=== PATIENT | female | born 1950 | race Caucasian/White ===

== ENCOUNTER 2019-04-07 07:54 | Inpatient (IN) ==
--- NOTE | 2019-03-26 16:35 | PAT Medication Instructions ---
Medication Instructions Date of Service March 26, 2019 Home Medications dicyclomine 20 mg PO QID PRN 03/18/19 [History Confirmed 03/18/19] duloxetine [Cymbalta] 60 mg PO BID 03/18/19 [History Confirmed 03/18/19] levothyroxine [Levoxyl] 75 mcg PO QAM 03/18/19 [History Confirmed 03/18/19] lorazepam 1 mg PO TID PRN 03/18/19 [History Confirmed 03/18/19] milnacipran [Savella] 25 mg PO BID 03/18/19 [History Confirmed 03/18/19] omeprazole magnesium [Prilosec OTC] 20 mg PO BID 03/18/19 [History Confirmed 03/18/19] ondansetron HCl [Zofran] 4 mg PO Q8H PRN 03/18/19 [History Confirmed 03/18/19] quetiapine [Seroquel] 100 mg PO HS 03/18/19 [History Confirmed 03/18/19] simvastatin 40 mg PO PM 03/18/19 [History Confirmed 03/18/19] sumatriptan succinate [Imitrex] 100 mg PO DAILY PRN 03/18/19 [History Confirmed 03/18/19] tizanidine [Zanaflex] 4 mg PO Q6H PRN 03/18/19 [History Confirmed 03/18/19] valacyclovir [Valtrex] 1,000 mg PO DAILY PRN 03/18/19 [History Confirmed 03/18/19] Continue as directed valacyclovir [Valtrex] 1,000 mg PO DAILY PRN 03/18/19 [History Confirmed 03/18/19] (if needed) DO NOT take the morning of surgery dicyclomine 20 mg PO QID PRN 03/18/19 [History Confirmed 03/18/19] tizanidine [Zanaflex] 4 mg PO Q6H PRN 03/18/19 [History Confirmed 03/18/19] Take morning of surgery With a small sip of water, OTHERWISE NOTHING TO EAT OR DRINK AFTER MIDNIGHT: duloxetine [Cymbalta] 60 mg PO BID 03/18/19 [History Confirmed 03/18/19] levothyroxine [Levoxyl] 75 mcg PO QAM 03/18/19 [History Confirmed 03/18/19] lorazepam 1 mg PO TID PRN 03/18/19 [History Confirmed 03/18/19] (if needed) milnacipran [Savella] 25 mg PO BID 03/18/19 [History Confirmed 03/18/19] omeprazole magnesium [Prilosec OTC] 20 mg PO BID 03/18/19 [History Confirmed 03/18/19] ondansetron HCl [Zofran] 4 mg PO Q8H PRN 03/18/19 [History Confirmed 03/18/19] (if needed) sumatriptan succinate [Imitrex] 100 mg PO DAILY PRN 03/18/19 [History Confirmed 03/18/19] (if needed) Other Notes If you have any questions please call us at [phone] or [phone] or [phone] or [phone]
--- NOTE | 2019-03-27 10:36 | Anesthesiology Consultation ---
Date of Service March 27, 2019 Assessment & Plan (1) Encounter for pre-operative examination: Chart Review Chart Review: Pending: Refer to Additional Notes / Consult section (pending preop testing (labs, EKG, CXR)) and Patient seen in Pre Admission Testing Teaching & Discussion Pre-Anesthesia Teaching/Discussion Notes: Instructed NPO after midnight before surgery,except medications with 15 cc of water. Medication instructions provid ed according to the PAT guidelines. History Surgery Operation Date: 04/10/19 10:25 Proposed Procedures p L3-L5 Decompression Fusion, Spinal Cord Monitoring - Oj Guzmán, Height/Weight Height: 5 ft 4 in Weight: 94 kg Allergies Allergy/AdvReac Type Severity Reaction Status Date / Time Penicillins Allergy Severe hives, GI Verified 03/27/19 10:35 upset Sulfa (Sulfonamide Allergy Severe hives Verified 03/27/19 10:35 Antibiotics) latex Allergy Intermediate red and Verified 08/01/15 12:09 swelling face meloxicam AdvReac Mild diarrhea Verified 03/27/19 10:43 Medications Home Medications Medication Instructions Recorded Confirmed Last Taken dicyclomine 20 mg PO QID PRN 03/18/19 03/18/19 Unknown duloxetine [Cymbalta] 60 mg PO BID 03/18/19 03/18/19 Unknown levothyroxine [Levoxyl] 75 mcg PO QAM 03/18/19 03/18/19 Unknown lorazepam 1 mg PO TID PRN 03/18/19 03/18/19 Unknown milnacipran [Savella] 25 mg PO BID 03/18/19 03/18/19 Unknown omeprazole magnesium [Prilosec OTC] 20 mg PO BID 03/18/19 03/18/19 Unknown ondansetron HCl [Zofran] 4 mg PO Q8H PRN 03/18/19 03/18/19 Unknown quetiapine [Seroquel] 100 mg PO HS 03/18/19 03/18/19 Unknown simvastatin 40 mg PO PM 03/18/19 03/18/19 Unknown sumatriptan succinate [Imitrex] 100 mg PO DAILY PRN 03/18/19 03/18/19 Unknown tizanidine [Zanaflex] 4 mg PO Q6H PRN 03/18/19 03/18/19 Unknown valacyclovir [Valtrex] 1,000 mg PO DAILY PRN 03/18/19 03/18/19 Unknown Past Medical History Medical History Anxiety and depression Degenerated intervertebral disc Fibromyalgia GERD (gastroesophageal reflux disease) High cholesterol History of blood transfusion after childbirth Hx of herpes simplex infection Valtrex PRN Hx of migraines Hypothyroidism IBS (irritable bowel syndrome) Obesity Sciatica Exercise / Class Metabolic Activity III < 4 Walking/Shop/Light housework Past Surgical History Surgical History History of total right knee replacement Hx of cholecystectomy Hx of colonoscopy Hx of left cataract extraction Hx of right cataract extraction Hx of shoulder surgery RIGHT AND LEFT Hx of total hysterectomy Past Anesthesia History No Hx of Anesthesia Complications (except PONV) and No Family Hx of Anesthesia Complications History of PONV History of PONV and Hx of Motion Sickness Social History Smoking Status: Former smoker Smoking End Date: Quit 1993 Hx Alcohol Use: Yes alcohol intake frequency: holidays/special occasions only Hx Substance Use: No Review of Systems Patient denies chest pain, shortness of breath, cough, wheezing, palpitations. Physical Exam Vital Signs VITALS BP 127/79 P 101 TEMP 98.4 SP02 98%RA RESP 18 PHYSICAL Full neck and c-spine range of motion. Full TMJ range of motion. TMD 3 finger breaths Mallampati Score 2 Dentition: missing molars, crowns/caps on upper front Lungs: clear throughout to auscultation Cardiac: regular rate and rhythm, no murmurs noted Spine: normal Carotid arteries: negative bruit Extremities: no edema
--- NOTE | 2019-03-27 11:33 | XRay Report ---
TWO VIEW CHEST CLINICAL HISTORY: Preoperative examination. FINDINGS: PA and lateral chest radiographs are compared to study dated 03/26/2014. The cardiomediastin al silhouette is unremarkable. The lungs and pleural spaces are clear. There is no pneumothorax. The skeletal structures are osteopenic. The bony thorax appears intact. Cholecystectomy clips are seen i n the right upper quadrant. IMPRESSION: No active disease in the chest. Electronically signed by: Luis Polanco M.D. 03/27/2019 11:32 AM
[2019-03-27 13:03] LABS: Basophils # (auto) 0.05 K/uL (0-0.2); Basophils % (auto) 0.5 %; Eosinophils # (auto) 0.46 K/uL (0-0.5); Eosinophils % (auto) 4.4 %; Hematocrit (blood only) 39.1 % (37-47); Hemoglobin 12.8 g/dL (12.0-16.0); Immature Granulocytes # (auto) 0.04 K/uL (0.00-0.02); Immature Granulocytes % (auto) 0.4 %; Lymphocytes # (auto) 1.83 K/uL (1.2-3.4); Lymphocytes % (auto) 17.6 %; Mean Corpuscular Hemoglobin 28.9 pg (25-34); Mean Corpuscular Hgb Conc 32.7 g/dL (32-36); Mean Corpuscular Volume 88.3 fL (80-100); Mean Platelet Volume 9.5 fL (7.4-10.4); Monocytes # (auto) 1.07 K/uL (0.11-0.59); Monocytes % (auto) 10.3 %; Neutrophils # (auto) 6.92 K/uL (1.4-6.5); Neutrophils % (auto) 66.8 %; Platelet Count 340 K/uL (130-400); RDW Coefficient of Variation 14.4 % (11.5-14.5); RDW Standard Deviation 46.8 fL (36.4-46.3); Red Blood Count 4.43 M/uL (4.2-5.4); White Blood Count 10.37 K/uL (4.8-10.8)
[2019-03-27 13:05] LABS: Appearance Urine Cloudy (Clear); Bacteria Urine Automated Negative (Negative); Blood Urine Negative (Negative); Color Urine Dark Yellow; Epithelial Cell Urine Auto >30 /lpf (0-5); Glucose Urine UA Negative (Negative); Ketones Urine Trace (Negative); Leukocyte Esterase Urine Trace (Negative); Nitrite Urine Negative (Negative); Protein Urine Trace (Negative); RBC Urine Automated 0-4 /hpf (0-4); Specific Gravity Urine 1.032 (1.000-1.030); Urobilinogen Urine Negative (Negative)
[2019-03-27 13:16] LABS: Bilirubin Urine Negative (Negative); Ictotest Urine Negative (Negative)
[2019-03-27 13:18] LABS: Partial Thromboplastin Ratio 0.8; Partial Thromboplastin Time 22.8 Seconds (21.0-31.0); Prothrombin Time 10.2 Seconds (9.0-12.0)
[2019-03-27 13:20] LABS: BUN Creatinine Ratio 17.9 (10-20); Calcium 9.5 mg/dl (8.5-10.1); Creatinine Clr Calc Pharmacy 53.7 ml/min; Est GFR (African American) 59.3; Est GFR (Non-African American) 51.2; Potassium 4.3 mmol/L (3.5-5.1)
[2019-03-27 13:25] LABS: Cast Urine Automated 0 /lpf (0-5)
[2019-03-27 13:26] LABS: Calcium Oxalate Crystals Urine Present (None Prsent)
[~2019-04-07 07:54] MED LIST: ACETAMINOPHEN 500 MG TAB PO SCH; CLINDAMYCIN 600 MG/54 ML BAG IV SCH; CeleBREX 200 MG CAP PO SCH; GABAPENTIN 300 MG CAP PO SCH; HYDROmorphone INJ 2 MG/ML SYR/VIAL ONE; LR 15ML/HR IV SCH; MIDAZOLAM HCL 1 MG/ML 2ML VIAL ONE; fentaNYL citrate 100 MCG/2 ML VIAL ONE
[2019-04-07] MEDS ORDERED: NEOSTIGMINE METHYLSULFATE 5 MG/5 ML SYR ONE (08:40)
[2019-04-07] MEDS ORDERED: DEXAMETHASONE SOD INJ 4 MG/ML VIAL ONE (08:40)
[2019-04-07] MEDS ORDERED: LIDOCAINE HCL 2% 2 ML VIAL/AMP(20MG/ML) INFIL ONE (08:40)
[2019-04-07] MEDS ORDERED: ONDANSETRON INJ 2 MG/ML 2 ML VIAL ONE (08:40)
[2019-04-07] MEDS ORDERED: ROCURONIUM BROMIDE 10 MG/ML 5 ML VIAL ONE (08:40)
[2019-04-07] MEDS ORDERED: GLYCOPYRROLATE 0.2 MG/ML VIAL ONE (08:40)
[2019-04-07] MEDS ORDERED: PROPOFOL IV EMULSION 10 MG/ML 20 ML VIAL IV ONE (08:40)
[2019-04-07] MEDS ORDERED: HYDROmorphone INJ 2 MG/ML SYR/VIAL ONE (09:26)
--- NOTE | 2019-04-07 10:01 | History & Physical Bridge Note ---
Date of Service April 07, 2019 History & Physical Bridge Note I have examined the patient, reviewed the History & Physical and in the interval since the performance of the History & Physical I have noted the following changes of clinical significance: no changes noted
--- NOTE | 2019-04-07 10:02 | History & Physical Report ---
Date of Service April 07, 2019 Assessment & Plan (1) Neurogenic claudication due to lumbar spinal stenosis: Decompression fusion L3-L5 Present on Admission?: Yes History of Present Illness Chief Complaint: Back and bilateral leg pain Primary Care Provider: Brooklyn Carlson DO This is a 68-year-old female who presents with chronic persistent back and leg symptoms. After failing extensive course of nonoperative care she is here for surgical intervention. Allergies Allergy/AdvReac Type Severity Reaction Status Date / Time Penicillins Allergy Severe hives, GI Verified 04/07/19 08:28 upset Sulfa (Sulfonamide Allergy Severe hives Verified 04/07/19 08:28 Antibiotics) latex Allergy Intermediate red and Verified 04/07/19 08:28 swelling face meloxicam AdvReac Mild diarrhea Verified 04/07/19 08:28 Home Medications Home Medications Medication Instructions Recorded Confirmed Type dicyclomine 20 mg PO QID PRN 03/18/19 04/07/19 History duloxetine [Cymbalta] 60 mg PO BID 03/18/19 04/07/19 History levothyroxine [Levoxyl] 75 mcg PO QAM 03/18/19 04/07/19 History lorazepam 1 mg PO TID PRN 03/18/19 04/07/19 History milnacipran [Savella] 25 mg PO BID 03/18/19 04/07/19 History omeprazole magnesium [Prilosec OTC] 20 mg PO BID 03/18/19 04/07/19 History ondansetron HCl [Zofran] 4 mg PO Q8H PRN 03/18/19 04/07/19 History quetiapine [Seroquel] 100 mg PO HS 03/18/19 04/07/19 History simvastatin 40 mg PO PM 03/18/19 04/07/19 History sumatriptan succinate [Imitrex] 100 mg PO DAILY PRN 03/18/19 04/07/19 History tizanidine [Zanaflex] 4 mg PO Q6H PRN 03/18/19 04/07/19 History valacyclovir [Valtrex] 1,000 mg PO DAILY PRN 03/18/19 04/07/19 History citalopram [Celexa] 20 mg PO BID 04/07/19 04/07/19 History Past Med/Surg History Social History Preferred Language: [place] Communication Ability: Effective Beliefs That Will Affect Care: None Current Living Situation: Spouse Feels Safe at Home: Yes Safety Concerns: Feels Safe At This Time Smoking Status: Former smoker Smoking End Date: Quit 1993 ; Second Hand Exposure: No ; Hx Alcohol Use: Yes Hx Substance Use: No Physical Exam Physical Exam: Patient is alert and oriented neurologically intact. Results & Data Vital Signs (Past 12 Hours) Vital Signs Temp Pulse Resp BP Pulse Ox 04/07/19 08:36 36.8 C 94 H 18 129/80 95
[2019-04-07] MEDS ORDERED: BACITRACIN INJ 50,000 UNIT VIAL ONE (10:17)
[2019-04-07] MEDS ORDERED: BUPIVACAINE 0.5 % 5 MG/1 ML MPF 30ML VIAL ONE (10:18)
[2019-04-07] MEDS ORDERED: EPINEPHrine INJ 1 MG/ML AMP ONE (10:18)
[2019-04-07] MEDS ORDERED: fentaNYL citrate 100 MCG/2 ML VIAL ONE ×3 (10:45→12:48)
[2019-04-07] MEDS ORDERED: PROMETHAZINE HCL 12.5 MG in SODIUM CHLORIDE 0.9% 50 ML IV PRN ×2 (11:02→14:54)
[2019-04-07] MEDS ORDERED: ONDANSETRON INJ 2 MG/ML 2 ML VIAL IV PRN (11:02)
[2019-04-07] MEDS ORDERED: LABETALOL HCL IV 5 MG/ML 20ML IV PRN (11:02)
[2019-04-07] MEDS ORDERED: ATROPINE SULFATE 0.1 MG/ML 10ML SYR IV PRN (11:02)
[2019-04-07] MEDS ORDERED: FLUMAZENIL 0.1 MG/1 ML 10 ML VIAL IV PRN (11:02)
[2019-04-07] MEDS ORDERED: NALOXONE HCL 0.4 MG/1 ML VIAL/CARP IV PRN ×2 (11:02→14:54)
[2019-04-07] MEDS ORDERED: ePHEDrine sulfate 50 MG/ML AMP IV PRN (11:02)
[2019-04-07] MEDS ORDERED: FLOSEAL HEMOSTATIC MATRIX 10ML TOP ONE (12:41)
[2019-04-07] MEDS ORDERED: PHENYLEPHRINE 100MCG/ML 5ML SYR ONE (12:52)
[2019-04-07] MEDS ORDERED: KETOROLAC 30 MG/ML VIAL ONE (12:52)
[2019-04-07] MEDS ORDERED: PHENYLEPHRINE HCL 10 MG/ML VIAL ONE (12:52)
--- NOTE | 2019-04-07 12:55 | Operative Report ---
Post Operative Report Pre & Post Diagnosis Operation Date: 04/07/19 09:35 Pre-Op Diagnosis: Lumbar Spinal Stenosis with Neurogenic Claudication Post-Op Diagnosis: Lumbar Spinal Stenosis with Neurogenic Claudication I identified the patient and participated in the time-out.: Yes Procedure Operation Date: 04/07/19 09:35 Actual Procedures #1 lumbar decompression with bilateral medial facetectomies foraminotomies L2-3 L3-4 L4-5. #2 posterior spinal fusion L3-4 L4-5 per #3 placement posterior instrumentation L3-4 L4-5 per #4 interbody fusion L3-4 L4-5 per #5 placed a peek cage 8 x 22 mm at L3-4 and 9 x 22 mm at L4-5. #6 placement of locally harvested morselized autograft in the posterior lateral gutters. #7 placement infuse collagen sponge combined with master graft in the posterior lateral gutters and ostial amp in the interbody spaces. Surgeon Oj Guzmán, DO Envelope Sealer Gill Diaz Estimated Blood Loss 250 Findings See Below The patient is 5 foot 4 inches tall weighing over 94 kg with a BMI in excess of 35. The patient's body habitus did require deeper retractors and longus instruments in order to perform her procedure. This did add significant technical difficulty at at least 25% increase in operative time. Specimens None Indications This is a 68-year-old female presents with above-mentioned diagnosis after failing extensive course of nonoperative care like to undergo the above- mentioned procedure. Description of Procedure Patient was met with identified and informed consent obtained. Patient was then taken to the operative suite underwent intubation placed in the prone position on the Darvin table on top of the Juan frame. All bony prominences well- padded eyes inspected to ensure no external pressure placed upon the peer at this point the lumbar spine was prepped and draped in normal sterile fashion. Sharp dissection with the assistance of Bovie cautery was performed down to and exposing the lamina and transverse processes of L3-L4-L5 bilaterally. From a caudal to cephalad fashion complete laminectomy of L4 L3 and partial laminectomy of L2 was performed including bilateral medial facetectomies and foraminotomies addressing lateral recess and foraminal stenosis. Pedicle fusion and placed in L3-L4-L5 bilaterally with assistance of fluoroscopy and the probably size tran placed. By way of a transforaminal approach on the right complete discectomy of L4-5 was performed in plate graded to subcortical being bone and a 9 x 22 mm peek cage filled with osteo-amp was tapped in position. Then proceeded to L3-[address] of a transforaminal approach on the right complete discectomy was performed endplates curetted to subcortical mean bone and a 8 x 22 mm peek cage filled with ostium bone graft tapped in position. The rods were then locked in final position bilaterally. The transverse processes of L3-L4-L5 bur to subcortical being bone. Infuse collagen sponge master graft and local autograft was placed in the posterior lateral gutters. 15 round KANU drain inserted. The incision was then closed with 1 Vicryl in the fascia 2-0 Vicryl subtenons in 4 Monocryl for final skin closure. Steri-Strip sterile dressings placed. Patient will continue to PACU stable disc. Please note Gill Diaz present at the entire procedure involved the patient positioning complex portions of the surgery and final skin closure. Lastly spinal cord monitoring was utilized that the procedure and no changes noted. I attest to the content of the Intraoperative Record and any orders documented therein. Any exceptions are noted below.
[2019-04-07] MEDS: HYDROmorphone INJ 1 MG/ML SYRINGE IV PRN ×8 (13:19→13:53)
[2019-04-07] MEDS ORDERED: ESMOLOL HCL INJ 10 MG/ML 10ML VIAL IV ONE (13:21)
--- NOTE | 2019-04-07 13:36 | Fluoroscopy Report ---
FL lumbar spine 2-3V HISTORY: 68 years-old Female L3-L5 DECOMPRESSION AND FUSION chronic low back pain COMPARISON: Lumbar spine CT 08/01/2015 TECHNIQUE: 2 spot fluoroscopic images of the lumbar spine were obtained utilizing 24.2 seconds fluoro scopy time FINDINGS: Laminectomy with posterior interbody tran and screw fusion and discectomy noted at what appears to be the L3-L5 levels. Alignment appears satisfactory without acute fracture. The hardware appears intact. Multilevel spondylitic spurring with intervertebral disc space narrowing redemonstrated. IMPRESSION: Fluoroscopic assistance as above. Please see operative report for further details. The above report was generated using voice recognition software. It may contain grammatical, syntax o r spelling errors. Electronically signed by: Juarez Meza M.D. 04/07/2019 1:34 PM
--- NOTE | 2019-04-07 14:28 | Anesthesiology Progress Note ---
Date of Service April 07, 2019 Anesthesia Post Procedure Vital Signs Vital Signs: Temp Pulse Pulse Pulse Resp BP BP 04/07/19 14:26 102 H 14 04/07/19 14:25 106 H 14 100/50 L 04/07/19 14:21 107 H 14 04/07/19 14:20 104 H 14 131/67 04/07/19 14:16 108 H 12 04/07/19 14:15 114 H 17 99/63 L 04/07/19 14:11 110 H 15 04/07/19 14:10 110 H 21 125/59 L 04/07/19 14:06 107 H 14 04/07/19 14:05 112 H 17 112/63 04/07/19 14:01 116 H 22 102/49 L 04/07/19 14:00 111 H 19 04/07/19 13:56 107 H 14 04/07/19 13:55 111 H 18 153/86 H 04/07/19 13:51 108 H 17 04/07/19 13:50 108 H 22 150/74 H 04/07/19 13:46 103 H 14 04/07/19 13:45 105 H 14 139/68 04/07/19 13:40 101 H 13 146/62 H 04/07/19 13:36 102 H 17 04/07/19 13:35 105 H 17 146/74 H 04/07/19 13:31 105 H 21 04/07/19 13:30 105 H 16 125/60 04/07/19 13:26 103 H 18 04/07/19 13:25 102 H 25 H 122/73 04/07/19 13:21 98 H 18 04/07/19 13:20 97 H 19 114/74 04/07/19 13:16 95 H 24 04/07/19 13:15 92 H 21 136/68 04/07/19 13:14 36.6 C 91 H 87 16 122/76 122/76 04/07/19 08:36 36.8 C 94 H 18 129/80 Pulse Ox 04/07/19 14:26 95 04/07/19 14:25 96 04/07/19 14:21 96 04/07/19 14:20 95 04/07/19 14:16 90 04/07/19 14:15 90 04/07/19 14:11 94 04/07/19 14:10 93 04/07/19 14:06 93 04/07/19 14:05 92 04/07/19 14:01 94 04/07/19 14:00 94 04/07/19 13:56 96 04/07/19 13:55 91 04/07/19 13:51 96 04/07/19 13:50 96 04/07/19 13:46 98 04/07/19 13:45 98 04/07/19 13:40 98 04/07/19 13:36 97 04/07/19 13:35 98 04/07/19 13:31 97 04/07/19 13:30 97 04/07/19 13:26 98 04/07/19 13:25 99 04/07/19 13:21 100 04/07/19 13:20 98 04/07/19 13:16 99 04/07/19 13:15 99 04/07/19 13:14 98 04/07/19 08:36 95 Pain Intensity Lower Back: Pain Intensity: 8 Transfer of Care Handoff Completed per policy Notes Mental Status: alert / awake / arousable Patient Amnestic to Procedure: Yes Nausea / Vomiting: adequately controlled Pain: adequately controlled Airway Patency, RR, SpO2: stable & adequate BP & HR: stable & adequate Hydration State: stable & adequate Anesthetic Complications: no major complications apparent
[2019-04-07] MEDS ORDERED: METOCLOPRAMIDE HCL INJ 5 MG/ML 2 ML VIAL IV PRN (14:54)
[2019-04-07] MEDS ORDERED: HYDROmorphone INJ 1 MG/ML SYRINGE IV PRN (14:54)
[2019-04-07] MEDS ORDERED: ALUMINUM/MAGNESIUM SUSP 30 ML UDC PO PRN (14:54)
[2019-04-07] MEDS ORDERED: ACETAMINOPHEN 1,000 MG/100 ML VIAL IV PRN (14:54)
[2019-04-07] MEDS ORDERED: DO NOT ADMINISTER FLU VACCINE PRN (14:54)
[2019-04-07] MEDS ORDERED: MAGNESIUM HYDROXIDE SUSP 30 ML UDC PO PRN (14:54)
[2019-04-07] MEDS ORDERED: SOD PHOSPHATE/SOD BIPHOSPHATE ENEMA 132 ML BTL PR PRN (14:54)
[2019-04-07] MEDS ORDERED: DICYCLOMINE HCL 20 MG TAB PO PRN (14:54)
[2019-04-07] MEDS ORDERED: ONDANSETRON 4 MG OD TAB PO PRN (14:54)
[2019-04-07] MEDS ORDERED: HYDROmorphone INJ 0.5 MG/0.5 ML SYR IV PRN (14:54)
[2019-04-07] MEDS ORDERED: ONDANSETRON 4 MG TAB PO PRN (14:54)
[2019-04-07] MEDS ORDERED: DO NOT ADMINISTER PNEUMOCOCCAL VACCINE PRN (14:54)
[2019-04-07] MEDS ORDERED: ATIVAN 1MG HOMEPACK PO PRN (14:54)
[2019-04-07] MEDS ORDERED: BISACODYL 10 MG SUPP PR PRN (14:54)
[2019-04-07] MEDS ORDERED: FAMOTIDINE 20 MG TAB PO PRN (14:54)
[2019-04-07] MEDS ORDERED: ACETAMINOPHEN 500 MG TAB PO PRN (14:54)
[2019-04-07] MEDS ORDERED: LORazepam 0.5 MG/1 ML VIAL IV PRN (14:54)
[2019-04-07] MEDS: LORazepam 0.5 MG TAB PO PRN (15:51)
[2019-04-07] MEDS: SODIUM CHLORIDE 0.9% 1000ML 1,000 ML IV SCH ×2 (15:51→23:27)
--- NOTE | 2019-04-07 16:32 | Hospitalist Consultation ---
Date of Consultation April 07, 2019 Assessment & Plan (1) Neurogenic claudication due to lumbar spinal stenosis: - POD#0 L3-L5 decompression fusion by Dr. Guzmán - activity and wound care orders as per ortho - pain control with bowel regimen - PT/OT - monitor H/H for acute blood loss anemia and transfuse blood products PRN - EBL 250 cc (2) Tachycardia: -Mild HR 90s-low 100s, heart rhythm auscultates to regular on exam -Likely secondary to postop pain -will check H&H to evaluate for anemia -Continue IVF (3) Hypothyroidism: -Continue with thyroxine (4) Fibromyalgia: (5) Anxiety and depression: -Continue home medications (6) GERD (gastroesophageal reflux disease): -Continue PPI (7) DVT prophylaxis: -Teds/SCDs as per spine orthopedics Thank you for this consultation. We will follow the patient with you during their hospital stay. You can reach a [facility] via pager @ [phone]. Supervising Physician Co-Signing Physician Notes Attending addendum The patient was seen and examined in medical floor Status post lumbar decompression and fusion. POD #0 Complains some back pain without any other symptoms Denies any chest pain, palpitation, shortness of breath, no abdominal pain, nausea and/or vomiting, no numbness or tingling in the extremities On examination Lying in bed comfortably Hemodynamically stable with borderline tachycardia Chest-clear to auscultate bilaterally Heart-S1-S2, regular Abdomen-benign Extremities-negative for any edema Her preop labs and imaging studies reviewed We will monitor her CBC and kidney function while in the hospital Agree with assessment and plan as outlined above by Rere Bronson History of Present Illness Reason for Consultation: Postop medical management Requesting Physician: Dr. Guzmán Attending Physician: Dr. Bronson History of Present Illness 68-year-old female who is status post L3-L5 decompression fusion today by Dr. Guzmán. Postoperatively, the patient is doing well. She reports she is having lumbar back pain however reports this was present prior to surgery. She denies any numbness or tingling to lower extremities. Has chronic numbness and t ingling to the upper extremities which is unchanged from baseline. She denies chest pain shortness of breath. No lightheadedness or dizziness. Denies abdominal pain or nausea. Smith catheter is in place draining clear yellow urine. Allergies Allergy/AdvReac Type Severity Reaction Status Date / Time Penicillins Allergy Severe hives, GI Verified 04/07/19 08:28 upset Sulfa (Sulfonamide Allergy Severe hives Verified 04/07/19 08:28 Antibiotics) latex Allergy Intermediate red and Verified 04/07/19 08:28 swelling face meloxicam AdvReac Mild diarrhea Verified 04/07/19 08:28 Home Medications Home Medications Medication Instructions Recorded Confirmed Type duloxetine [Cymbalta] 60 mg PO BID 03/18/19 04/07/19 History levothyroxine [Levoxyl] 75 mcg PO QAM 03/18/19 04/07/19 History lorazepam 1 mg PO TID PRN 03/18/19 04/07/19 History milnacipran [Savella] 25 mg PO BID 03/18/19 04/07/19 History omeprazole magnesium [Prilosec OTC] 20 mg PO BID 03/18/19 04/07/19 History ondansetron HCl [Zofran] 4 mg PO Q8H PRN 03/18/19 04/07/19 History quetiapine [Seroquel] 100 mg PO HS 03/18/19 04/07/19 History simvastatin 40 mg PO PM 03/18/19 04/07/19 History sumatriptan succinate [Imitrex] 100 mg PO DAILY PRN 03/18/19 04/07/19 History tizanidine [Zanaflex] 4 mg PO Q6H PRN 03/18/19 04/07/19 History valacyclovir [Valtrex] 1,000 mg PO DAILY PRN 03/18/19 04/07/19 History celecoxib 100 mg PO BID 04/07/19 04/07/19 History Patient History Medical History Anxiety and depression Degenerated intervertebral disc Fibromyalgia GERD (gastroesophageal reflux disease) High cholesterol History of blood transfusion 1969's after childbirth Hx of herpes simplex infection Valtrex PRN Hx of migraines Hypothyroidism IBS (irritable bowel syndrome) Obesity Sciatica Surgical History History of total right knee replacement Hx of cholecystectomy Hx of colonoscopy Hx of left cataract extraction Hx of right cataract extraction Hx of shoulder surgery RIGHT AND LEFT Hx of total hysterectomy Family History Father Colorectal cancer Abdominal aortic aneurysm Diabetes Social History Preferred Language: Divehi Communication Ability: Effective Beliefs That Will Affect Care: None Current Living Situation: Spouse Feels Safe at Home: Yes Safety Concerns: Feels Safe At This Time Smoking Status: Former smoker Smoking End Date: Quit 1993 ; Second Hand Exposure: No ; Hx Alcohol Use: Yes Hx Substance Use: No Review of Systems Review of Systems: ROS per HPI, all other systems reviewed and negative Physical Exam Constitutional: WD/WN, vitals as above Eyes: PERRL, conjunctivae normal, anicteric sclerae ENMT: external ear and nose normal, oropharynx normal Respiratory: normal respiratory effort, lungs clear to auscultation Cardiovascular: Rate/Rhythm: regular rate and regular rhythm Vessels: normal peripheral pulses Extremities: + edema (Trace edema BLE) Gastrointestinal (Abdomen): normal bowel sounds, soft, nontender, no hepatosplenomegaly Musculoskeletal: no cyanosis or clubbing, extremities motor strength 5/5 S/P back surgery, drain in place draining bloody drainage, pedal pushes and pulls strong bilaterally Skin: no rashes, warm and dry Neurologic: PERRL, EOMI, accommodation nl, no face palsy, no dysarthria Psychiatric: A+Ox3, euthymic affect Results & Data Vital Signs (Past 12 Hours) Vital Signs Temp Pulse Pulse Pulse Pulse Resp BP 04/07/19 15:23 91 H 17 04/07/19 14:40 36.6 C 111 H 16 04/07/19 14:26 102 H 14 04/07/19 14:25 106 H 14 100/50 L 04/07/19 14:21 107 H 14 04/07/19 14:20 36.4 C L 104 H 14 131/67 04/07/19 14:16 108 H 12 04/07/19 14:15 114 H 17 99/63 L 04/07/19 14:11 110 H 15 04/07/19 14:10 110 H 21 125/59 L 04/07/19 14:06 107 H 14 04/07/19 14:05 112 H 17 112/63 04/07/19 14:01 116 H 22 102/49 L 04/07/19 14:00 111 H 19 04/07/19 13:56 107 H 14 04/07/19 13:55 111 H 18 153/86 H 04/07/19 13:51 108 H 17 04/07/19 13:50 108 H 22 150/74 H 04/07/19 13:46 103 H 14 04/07/19 13:45 105 H 14 139/68 04/07/19 13:40 101 H 13 146/62 H 04/07/19 13:36 102 H 17 04/07/19 13:35 105 H 17 146/74 H 04/07/19 13:31 105 H 21 04/07/19 13:30 105 H 16 125/60 04/07/19 13:26 103 H 18 04/07/19 13:25 102 H 25 H 122/73 04/07/19 13:21 98 H 18 04/07/19 13:20 97 H 19 114/74 04/07/19 13:16 95 H 24 04/07/19 13:15 92 H 21 136/68 04/07/19 13:14 36.6 C 91 H 87 16 122/76 04/07/19 08:36 36.8 C 94 H 18 BP Pulse Ox 04/07/19 15:23 107/69 95 04/07/19 14:40 123/68 95 04/07/19 14:26 95 04/07/19 14:25 96 04/07/19 14:21 96 04/07/19 14:20 94 04/07/19 14:16 90 04/07/19 14:15 90 04/07/19 14:11 94 04/07/19 14:10 93 04/07/19 14:06 93 04/07/19 14:05 92 04/07/19 14:01 94 04/07/19 14:00 94 04/07/19 13:56 96 04/07/19 13:55 91 04/07/19 13:51 96 04/07/19 13:50 96 04/07/19 13:46 98 04/07/19 13:45 98 04/07/19 13:40 98 04/07/19 13:36 97 04/07/19 13:35 98 04/07/19 13:31 97 04/07/19 13:30 97 04/07/19 13:26 98 04/07/19 13:25 99 04/07/19 13:21 100 04/07/19 13:20 98 04/07/19 13:16 99 04/07/19 13:15 99 04/07/19 13:14 122/76 98 04/07/19 08:36 129/80 95
[2019-04-07 16:35] LABS: Hematocrit (blood only) 33.2 % (37-47); Hemoglobin 10.7 g/dL (12.0-16.0)
[2019-04-07] MEDS: CLINDAMYCIN 600 MG in DEXTROSE 5% 50 ML IV SCH (17:20)
[2019-04-07] MEDS: OXYCODONE HCL IR 5 MG TAB (IMMEDIATE RELEASE) PO PRN (18:10)
[2019-04-07] MEDS: DULOXETINE HCL 60 MG CAP PO SCH (20:07)
[2019-04-07] MEDS: QUETIAPINE FUMARATE 100 MG TABLET PO SCH (20:08)
[2019-04-07] MEDS: SIMVASTATIN 40 MG TAB PO SCH (20:08)
[2019-04-07] MEDS: PANTOprazole 40 MG TAB PO SCH (20:08)
[2019-04-07] MEDS: DOCUSATE SODIUM/SENNA 50/8.6MG TAB PO SCH (20:08)
[2019-04-07] MEDS ORDERED: CITALOPRAM 20 MG TAB PO SCH (21:00)
[2019-04-08] MEDS: LORazepam 0.5 MG TAB PO PRN ×2 (00:37→20:05)
[2019-04-08] MEDS: OXYCODONE HCL IR 5 MG TAB (IMMEDIATE RELEASE) PO PRN ×3 (00:40→20:05)
[2019-04-08] MEDS: CLINDAMYCIN 600 MG in DEXTROSE 5% 50 ML IV SCH (00:41)
[2019-04-08] MEDS: POLYETHYLENE (MIRALAX) 17 GM PACK PO SCH ×4 (04:56→23:25)
[2019-04-08] MEDS: LEVOTHYROXINE SODIUM 75 MCG TABLET PO SCH (04:57)
[2019-04-08] MEDS: ONDANSETRON INJ 2 MG/ML 2 ML VIAL IV PRN ×2 (05:05→16:55)
[2019-04-08 05:42] LABS: Hematocrit (blood only) 30.5 % (37-47); Hemoglobin 9.8 g/dL (12.0-16.0); Immature Granulocytes # (auto) 0.11 K/uL (0.00-0.02); Immature Granulocytes % (auto) 0.6 %; Lymphocytes # (auto) 1.18 K/uL (1.2-3.4); Lymphocytes % (auto) 6.8 %; Mean Corpuscular Hemoglobin 28.2 pg (25-34); Mean Corpuscular Hgb Conc 32.1 g/dL (32-36); Mean Corpuscular Volume 87.6 fL (80-100); Mean Platelet Volume 9.3 fL (7.4-10.4); Monocytes # (auto) 1.21 K/uL (0.11-0.59); Monocytes % (auto) 6.9 %; Neutrophils # (auto) 14.98 K/uL (1.4-6.5); Neutrophils % (auto) 85.7 %; Platelet Count 252 K/uL (130-400); RDW Coefficient of Variation 14.6 % (11.5-14.5); RDW Standard Deviation 46.8 fL (36.4-46.3); Red Blood Count 3.48 M/uL (4.2-5.4); White Blood Count 17.48 K/uL (4.8-10.8)
[2019-04-08 06:14] LABS: BUN Creatinine Ratio 17.6 (10-20); Calcium 8.5 mg/dl (8.5-10.1); Creatinine Clr Calc Pharmacy 57.4 ml/min; Est GFR (African American) 64.2; Est GFR (Non-African American) 55.4; Potassium 4.6 mmol/L (3.5-5.1)
[2019-04-08] MEDS: PANTOprazole 40 MG TAB PO SCH ×2 (07:47→20:06)
[2019-04-08] MEDS: DULOXETINE HCL 60 MG CAP PO SCH ×2 (07:48→20:06)
[2019-04-08] MEDS: TRAMADOL HCL 50 MG TABLET PO PRN ×2 (07:57→23:30)
--- NOTE | 2019-04-08 09:11 | Hospitalist Progress Note ---
Date of Service April 08, 2019 Assessment & Plan (1) Neurogenic claudication due to lumbar spinal stenosis: Post op day# 1 S/P L3-L5 decompression & fusion by Dr Guzmán EBL #250ml Total #220ml Drain output -pain management per ortho -wound management per ortho -PT/OT as appropriate -DVT prophylaxis per ortho -incentive spirometry -Hgb: 9.8 from 12.8 pre-op. Pt has received ~4700ml total IV products. Monitor H&H. (2) Tachycardia: Post op HR 90s-low 100s This morning HR 94 Pt with some post-op pain Received IVF -Monitor HR (3) Leukocytosis: WBC: 17, from 12.8 pre-op Denies cough, SOB, CP. Lungs clear to auscultation. No urinary symptoms. Afebrile May be secondary to perioperative steroids, post-operative state -Monitor CBC and monitor for signs of infection and may need to consider further workup (4) Hypothyroidism: -Continue with thyroxine (5) Fibromyalgia: (6) Anxiety and depression: -Continue home medications (7) GERD (gastroesophageal reflux disease): -Continue PPI (8) DVT prophylaxis: -Teds/SCDs as per spine orthopedics Pt was seen and care coordinated with Dr Garcia. See addendum Supervising Physician Co-Signing Physician Notes Attending addendum: Patient seen and examined by me, care coordinated with JERO Jimenez. Agree with her note above. Pt is a 68 y/o F who is s/p L3-L5 decompression fusion POD#1, by Dr. Guzmán. Postoperatively, the patient is doing well. She reports having some lumbar back pain however reports this was present prior to surgery. She denies chest pain, shortness of breath, palpitations, abdominal pain, nausea, vomiting, lightheadedness or dizziness. She says that her "fibromyalgia is flaring up". Smith catheter is in place draining clear yellow urine. On examination, patient is lying in bed in no acute distress, comfortable. Hemodynamically stable with borderline tachycardia. Chest-clear to auscultation bilaterally, no wheezes or rhonchi. Heart sounds regular, no murmurs noted. Abdomen is soft, nontender, nondistended, positive bowel sounds. Extremities-negative for any edema. Labs reviewed, significant for leukocytosis, with white blood cell count of 17.5, likely secondary to corticosteroid use and postop phase. Anemia with hemoglobin 9.8, down from 10.7 yesterday and 12.8 prior to that, this is likely dilutional and acute blood loss, expected secondary to surgery. Patient is hemodynamically stable. We will continue to monitor. Thank you for this consultation, please contact us with any questions or concerns. Diya Garcia MD Subjective Pt seen and examined. Sitting up in bed. Reports had some nausea this morning. Reports some low back pain this morning. Tolerated toast for breakfast. No vomiting. Reports passing flatus. Urinating without difficulty. Denies fever/chills, diaphoresis, GOMES, dizziness, syncope, vision changes, neck pain, CP, SOB, orthopnea, palpitations, cough, sore throat, choking, abdominal pain, paresthesias, extremity edema, rashes, urinary symptoms. Review of Systems Review of Systems: All systems reviewed & are unremarkable except as noted in HPI & below Physical Exam Physical Exam: General: no acute distress, obese Head: normocephalic, atraumatic Eyes: conjunctiva non-injected, anicteric ENT: normal inspection external ears, nose, mucous membranes moist Neck: supple, trachea midline Lungs: clear, no respiratory distress, no wheezing/rhonchi/rales CV: RRR, rate: 92, no murmur, no pretibial edema Abd: normal BS, soft, non-tender Back: surgical dressing in place, drain in place with serosanguineous drainage Ext: no cyanosis, no calf tenderness; pedal pushes and pulls intact bilaterally, distal pulses intact, sensation to light touch intact Neuro: A&O x 3, no focal deficits noted, normal affect Skin: warm, dry Results & Data Vital Signs (Past 12 Hours) Vital Signs Temp Pulse Pulse Resp BP Pulse Ox 04/08/19 08:15 91 04/08/19 08:00 36.8 C 94 H 21 113/71 95 04/08/19 04:58 96 04/08/19 04:57 88 L 04/08/19 03:45 37.0 C 104 H 16 98/63 L 91 04/07/19 23:10 37.1 C 101 H 18 104/62 93 Laboratory Results Short CBC 03/27/19 04/07/19 04/08/19 Range/Units 11:00 16:14 04:46 WBC 17.48 H (4.8-10.8) K/uL Hgb 10.7 L 9.8 L (12.0-16.0) g/dL Hct 33.2 L 30.5 L (37-47) % Plt Count 252 (130-400) K/uL Creatinine 1.10 (0.6-1.2) mg/dl 04/08/19 Range/Units 04:46 WBC (4.8-10.8) K/uL Hgb (12.0-16.0) g/dL Hct (37-47) % Plt Count (130-400) K/uL Creatinine 1.03 (0.6-1.2) mg/dl BMP 04/08/19 04:46 Sodium 140 Potassium 4.6 Chloride 107 Carbon Dioxide 27 BUN 18 Creatinine 1.03 Glucose 133 H Calcium 8.5
--- NOTE | 2019-04-08 09:16 | Orthopedic Progress Note ---
Date of Service April 08, 2019 Assessment & Plan (1) Neurogenic claudication due to lumbar spinal stenosis: This time initiate physical therapy. She does have a history of fibromyalgia and some chronic pain issues. I encouraged her to be as active as possible. Anticipate discharge home hopefully in the next few days. Present on Admission?: Yes Subjective Patient's back pain is controlled denies any leg pain. Physical Exam Physical Exam: Patient is seen with bed is good strength testing appears co mfortable. Results & Data Vital Signs (Past 12 Hours) Vital Signs Temp Pulse Pulse Resp BP Pulse Ox 04/08/19 08:15 91 04/08/19 08:00 36.8 C 94 H 21 113/71 95 04/08/19 04:58 96 04/08/19 04:57 88 L 04/08/19 03:45 37.0 C 104 H 16 98/63 L 91 04/07/19 23:10 37.1 C 101 H 18 104/62 93
[2019-04-08] MEDS: QUETIAPINE FUMARATE 100 MG TABLET PO SCH (20:06)
[2019-04-08] MEDS: SIMVASTATIN 40 MG TAB PO SCH (20:06)
[2019-04-08] MEDS: DOCUSATE SODIUM/SENNA 50/8.6MG TAB PO SCH (20:07)
[2019-04-09 05:42] LABS: Basophils # (auto) 0.01 K/uL (0-0.2); Basophils % (auto) 0.1 %; Eosinophils # (auto) 0.07 K/uL (0-0.5); Eosinophils % (auto) 0.5 %; Hematocrit (blood only) 29.2 % (37-47); Hemoglobin 9.5 g/dL (12.0-16.0); Immature Granulocytes # (auto) 0.05 K/uL (0.00-0.02); Immature Granulocytes % (auto) 0.4 %; Lymphocytes # (auto) 2.61 K/uL (1.2-3.4); Mean Corpuscular Hemoglobin 28.7 pg (25-34); Mean Corpuscular Hgb Conc 32.5 g/dL (32-36); Mean Corpuscular Volume 88.2 fL (80-100); Monocytes # (auto) 1.27 K/uL (0.11-0.59); Monocytes % (auto) 9.7 %; Neutrophils # (auto) 9.05 K/uL (1.4-6.5); Neutrophils % (auto) 69.3 %; Platelet Count 220 K/uL (130-400); RDW Coefficient of Variation 14.7 % (11.5-14.5); RDW Standard Deviation 47.7 fL (36.4-46.3); Red Blood Count 3.31 M/uL (4.2-5.4); White Blood Count 13.06 K/uL (4.8-10.8)
[2019-04-09 06:10] LABS: BUN Creatinine Ratio 19.4 (10-20); Calcium 8.5 mg/dl (8.5-10.1); Creatinine Clr Calc Pharmacy 55.3 ml/min; Est GFR (African American) 61.3; Est GFR (Non-African American) 52.9; Potassium 4.1 mmol/L (3.5-5.1)
[2019-04-09] MEDS: POLYETHYLENE (MIRALAX) 17 GM PACK PO SCH ×3 (06:10→18:23)
[2019-04-09] MEDS: OXYCODONE HCL IR 5 MG TAB (IMMEDIATE RELEASE) PO PRN (06:10)
[2019-04-09] MEDS: TIZANIDINE HCL 4 MG TABLET PO PRN (06:11)
[2019-04-09] MEDS: LEVOTHYROXINE SODIUM 75 MCG TABLET PO SCH (06:40)
[2019-04-09] MEDS ORDERED: SODIUM CHLORIDE 0.9% 1000ML 500 ML IV STA (08:35)
[2019-04-09] MEDS ORDERED: SODIUM CHLORIDE 0.9% 1000ML 500 ML IV ONE (09:30)
[2019-04-09] MEDS: PANTOprazole 40 MG TAB PO SCH ×2 (09:30→20:14)
[2019-04-09] MEDS: DULOXETINE HCL 60 MG CAP PO SCH ×2 (09:30→20:15)
--- NOTE | 2019-04-09 15:09 | Orthopedic Progress Note ---
Date of Service April 09, 2019 Assessment & Plan (1) Neurogenic claudication due to lumbar spinal stenosis: This time continue physical therapy monitor her blood pressure. KANU drain is decreasing probably. She may be able to discharge home tomorrow. Present on Admission?: Yes Subjective Back pain is controlled leg pain improved. Physical Exam Physical Exam: Patient is in bed at this time. Good strength strength testing. She is been able to ambulate to the bathroom without difficulty. Results & Data Vital Signs (Past 12 Hours) Vital Signs Temp Pulse Pulse Resp BP Pulse Ox 04/09/19 12:22 111/74 04/09/19 10:18 108/71 04/09/19 09:37 101 H 96/63 L 04/09/19 09:27 88/62 L 04/09/19 09:22 90/62 L 04/09/19 09:06 89/60 L 04/09/19 08:52 94/62 L 04/09/19 08:39 89/60 L 04/09/19 08:29 82/53 L 04/09/19 08:26 81/51 L 04/09/19 08:24 82/53 L 04/09/19 08:22 75/47 L 04/09/19 07:22 36.9 C 86 18 81/47 L 91
[2019-04-09] MEDS: TRAMADOL HCL 50 MG TABLET PO PRN (15:50)
--- NOTE | 2019-04-09 18:54 | Hospitalist Progress Note ---
Date of Service April 09, 2019 Assessment & Plan (1) Neurogenic claudication due to lumbar spinal stenosis: Post op day# 2 S/P L3-L5 decompression & fusion by Dr Guzmán -pain management per ortho -wound management per ortho -PT/OT as appropriate -DVT prophylaxis per ortho -incentive spirometry -Hgb: 9.5 (stable) but down from 12.8 pre-op. Likely dilutional, and expected acute blood loss post surg. - Monitor H&H. (2) Tachycardia: Post op HR 90s-low 100s However also hypotensive today, requiring IVF -Monitor HR (3) Leukocytosis: WBC: 17, from 12.8 pre-op - likely secondary to perioperative steroids, post-operative state, now down to 13k -Monitor CBC and monitor for signs of infection and may need to consider further workup (4) Hypothyroidism: -Continue with thyroxine (5) Fibromyalgia: (6) Anxiety and depression: -Continue home medications (7) GERD (gastroesophageal reflux disease): -Continue PPI (8) DVT prophylaxis: -Teds/SCDs as per spine orthopedics Subjective This morning patient felt lightheaded when getting up from bed, found to be hypotensive in 80s to 90s of systolic over 60s of diastolic BP, on my evaluation patient is alert and oriented x3, conversant. Received 1 L of IVF, normal saline, blood pressure improved to 110s of systolic after IVF. Patient otherwise denies any fevers, chills, chest pain, shortness of breath, abdominal pain, nausea or vomiting. Review of Systems Review of Systems: All systems reviewed & are unremarkable except as noted in HPI & below Constitutional: no fever and no chills Respiratory: no cough, no dyspnea and no pain on inspiration Cardiovascular: no chest pain, no dyspnea on exertion, no palpitations and no edema Gastrointestinal: no abdominal pain, no nausea and no vomiting Physical Exam Physical Exam: General: Elderly female lying in bed feeling weak, blood pressure 90s over 60s Head: normocephalic, atraumatic Eyes: conjunctiva non-injected, PERRL, EOMI, anicteric ENT: normal inspection external ears, nose, mucous membranes moist Neck: supple, trachea midline Lungs: clear, no respiratory distress, no wheezing/rhonchi/rales CV: RRR, no murmur, no pretibial edema Abd: normal BS, soft, non-tender, nondistended, no guarding Back: surgical dressing in place, drain in place with serosanguineous drainage, no edema, erythema or hematoma noted on back inspection Ext: no cyanosis, no calf tenderness, distal pulses intact, sensation to light touch intact, moves all 4 extremities spontaneously Neuro: A&O x 3, no focal deficits noted, normal affect Skin: warm, dry Results & Data Vital Signs (Past 12 Hours) Vital Signs Temp Pulse Pulse Resp BP BP Pulse Ox 04/09/19 15:26 37.2 C 105 H 17 124/69 95 04/09/19 12:22 111/74 04/09/19 10:18 108/71 04/09/19 09:37 101 H 96/63 L 04/09/19 09:27 88/62 L 04/09/19 09:22 90/62 L 04/09/19 09:06 89/60 L 04/09/19 08:52 94/62 L 04/09/19 08:39 89/60 L 04/09/19 08:29 82/53 L 04/09/19 08:26 81/51 L 04/09/19 08:24 82/53 L 04/09/19 08:22 75/47 L 04/09/19 07:22 36.9 C 86 18 81/47 L 91 Laboratory Results 04/09/19 04/09/19 Range/Units 05:24 05:24 WBC 13.06 H (4.8-10.8) K/uL RBC 3.31 L (4.2-5.4) M/uL Hgb 9.5 L (12.0-16.0) g/dL Hct 29.2 L (37-47) % MCV 88.2 (80-100) fL MCH 28.7 (25-34) pg MCHC 32.5 (32-36) g/dL RDW Std Deviation 47.7 H (36.4-46.3) fL RDW Coeff of Hi 14.7 H (11.5-14.5) % Plt Count 220 (130-400) K/uL MPV 9.0 (7.4-10.4) fL Immature Gran % (Auto) 0.4 % Neut % (Auto) 69.3 % Lymph % (Auto) 20.0 % [place] % (Auto) 9.7 % Eos % (Auto) 0.5 % Baso % (Auto) 0.1 % Immature Gran # (Auto) 0.05 H (0.00-0.02) K/uL Neut # (Auto) 9.05 H (1.4-6.5) K/uL Lymph # (Auto) 2.61 (1.2-3.4) K/uL [place] # (Auto) 1.27 H (0.11-0.59) K/uL Eos # (Auto) 0.07 (0-0.5) K/uL Baso # (Auto) 0.01 (0-0.2) K/uL Sodium 139 (136-145) mmol/L Potassium 4.1 (3.5-5.1) mmol/L Chloride 106 (98-107) mmol/L Carbon Dioxide 30 (21-32) mmol/L Anion Gap 3.0 (3-11) BUN 21 H (7-18) mg/dl Creatinine 1.07 (0.6-1.2) mg/dl Est Cr Clr Drug Dosing 55.3 ml/min Est GFR ( Amer) 61.3 Est GFR (Non-Af Amer) 52.9 BUN/Creatinine Ratio 19.4 (10-20) Glucose 127 H (70-99) mg/dl Calcium 8.5 (8.5-10.1) mg/dl Medications Administered Current Inpatient Medications Acetaminophen (Tylenol) 1,000 mg PO Q8H PRN PRN Reason: MILD Pain Rating 1,2,3 Stop: 05/07/19 14:53 Al Hydrox/Mg Hydrox/Simethicone (Maalox) 30 ml PO Q6H PRN PRN Reason: Dyspepsia Stop: 05/07/19 14:53 Bisacodyl (Dulcolax) 10 mg MI DAILY PRN PRN Reason: Constipation Stop: 05/07/19 14:53 Diphenhydramine HCl (Benadryl Capsule) 25 mg PO Q6H PRN PRN Reason: Allergic Rhinitis/Insomnia Stop: 05/07/19 14:53 Duloxetine HCl (Cymbalta) 60 mg PO BID LAM Stop: 05/07/19 20:59 Last Admin: 04/09/19 09:30 Dose: 60 mg Documented by: Famotidine (Pepcid) 20 mg PO Q12H PRN PRN Reason: Dyspepsia Stop: 05/07/19 14:53 Hydromorphone HCl (Dilaudid) 0.5 mg IV Q3H PRN PRN Reason: moderate pain (scale 4-6) Stop: 04/21/19 14:53 Last Admin: 04/07/19 20:02 Dose: 0.5 mg Documented by: Hydromorphone HCl (Dilaudid) 1 mg IV Q3H PRN PRN Reason: severe pain (scale 7-10) Stop: 04/21/19 14:53 Last Admin: 04/07/19 23:22 Dose: 1 mg Documented by: Hydroxyzine HCl (Vistaril) 25 mg PO Q8H PRN PRN Reason: Anxiety Stop: 05/07/19 14:53 Promethazine HCl 12.5 mg/ (Sodium Chloride) 50.5 mls @ 204 mls/hr IV Q6H PRN PRN Reason: Nausea &/or Vomiting Stop: 05/07/19 14:53 Lorazepam (Ativan) 0.5 mg in 1 mls @ 0.5 mls/min IV Q8H PRN PRN Reason: Sedation/Anxiety Stop: 05/07/19 14:53 Influenza Virus Vaccine Quadrival (Flu Vaccine, Do Not Administer) 1 ea N/A PRN PRN PRN Reason: Notification Stop: 05/07/19 14:53 [facility] Stop: 05/08/19 06:29 Last Admin: 04/09/19 06:40 Dose: 75 mcg Documented by: Lorazepam (Ativan) 0.5 mg PO Q8H PRN PRN Reason: Sedation/Anxiety Stop: 05/07/19 14:53 Last Admin: 04/08/19 20:05 Dose: 0.5 mg Documented by: Magnesium Hydroxide (Milk Of Magnesia) 30 ml PO DAILY PRN PRN Reason: Constipation Stop: 05/07/19 14:53 Metoclopramide HCl (Reglan) 10 mg IV Q6H PRN PRN Reason: Nausea &/or Vomiting Stop: 05/07/19 14:53 Miscellaneous (Order Awaiting Action) 1 ea N/A QS [facility] Stop: 05/07/19 15:59 Last Admin: 04/09/19 15:46 Dose: Not Given Documented by: Naloxone HCl (Narcan) 0.1 mg IV Q5M PRN; Protocol PRN Reason: Oversedation/Resp Depression Stop: 05/07/19 14:53 Ondansetron HCl (Zofran) 4 mg IV Q6H PRN PRN Reason: Nausea &/or Vomiting Stop: 05/07/19 14:53 Last Admin: 04/08/19 16:55 Dose: 4 mg Documented by: Ondansetron HCl (Zofran Odt) 4 mg PO Q6H PRN PRN Reason: Nausea Stop: 05/07/19 14:53 Last Admin: 04/09/19 06:08 Dose: 4 mg Documented by: Oxycodone HCl (Roxicodone Immediate Rel) 5 - 10 mg PO Q4H PRN PRN Reason: Moderate-Severe Pain Stop: 04/21/19 14:53 Last Admin: 04/09/19 06:10 Dose: 10 mg Documented by: Pantoprazole Sodium (Protonix) 40 mg PO BID LAM Stop: 05/07/19 20:59 Last Admin: 04/09/19 09:30 Dose: 40 mg Documented by: Pneumococcal Polyvalent Vaccine (Pneumococcal Vacc, Do Not Administer) 1 ea N/A PRN PRN PRN Reason: Notification Stop: 05/07/19 14:53 Polyethylene Glycol (Miralax Powder Packet) 17 gm PO Q6 LAM Stop: 05/08/19 05:59 Last Admin: 04/09/19 18:23 Dose: 17 gm Documented by: Quetiapine Fumarate (Seroquel) 100 mg PO HS LAM Stop: 05/07/19 20:59 Last Admin: 04/08/19 20:06 Dose: 100 mg Documented by: Senna/Docusate Sodium (Senokot S) 2 tab PO HS LAM Stop: 05/07/19 20:59 Last Admin: 04/08/19 20:07 Dose: 2 tab Documented by: Simvastatin (Zocor) 40 mg PO PM LAM Stop: 05/07/19 20:59 Last Admin: 04/08/19 20:06 Dose: 40 mg Documented by: Sodium Biphosphate/Sodium Phosphate (Fleet Enema) 132 ml MI ONE PRN PRN Reason: Constipation Stop: 05/07/19 14:53 Sumatriptan Succinate (Imitrex) 100 mg PO DAILY PRN PRN Reason: Migraine Headache Stop: 05/07/19 14:53 Tizanidine HCl (Zanaflex) 4 mg PO Q6H PRN PRN Reason: MUSCLE SPASMS Stop: 05/07/19 14:53 Last Admin: 04/09/19 06:11 Dose: 4 mg Documented by: Tramadol HCl (Ultram) 50 - 100 mg PO Q4H PRN PRN Reason: Moderate-Severe Pain Stop: 05/07/19 14:53 Last Admin: 04/09/19 15:50 Dose: 100 mg Documented by:
[2019-04-09] MEDS: SIMVASTATIN 40 MG TAB PO SCH (20:14)
[2019-04-09] MEDS: QUETIAPINE FUMARATE 100 MG TABLET PO SCH (20:15)
[2019-04-09] MEDS: DOCUSATE SODIUM/SENNA 50/8.6MG TAB PO SCH (20:15)
[2019-04-09] MEDS: SUMAtriptan succinate 50 MG TAB PO PRN (20:45)
[2019-04-09] MEDS: LORazepam 0.5 MG TAB PO PRN (20:49)
[2019-04-10] MEDS: POLYETHYLENE (MIRALAX) 17 GM PACK PO SCH ×3 (01:26→12:36)
[2019-04-10] MEDS: LEVOTHYROXINE SODIUM 75 MCG TABLET PO SCH (05:19)
[2019-04-10] MEDS: PANTOprazole 40 MG TAB PO SCH ×2 (09:06→20:47)
[2019-04-10] MEDS: DULOXETINE HCL 60 MG CAP PO SCH ×2 (09:06→20:47)
[2019-04-10] MEDS: SUMAtriptan succinate 50 MG TAB PO PRN ×2 (09:06→20:46)
[2019-04-10] MEDS: TIZANIDINE HCL 4 MG TABLET PO PRN (10:13)
--- NOTE | 2019-04-10 10:43 | Orthopedic Progress Note ---
Date of Service April 10, 2019 Assessment & Plan (1) Neurogenic claudication due to lumbar spinal stenosis: This time we will continue physical therapy change her dressing DC drain today. Anticipate discharge home tomorrow. Present on Admission?: Yes Subjective Patient is noting some improvement of her back pain leg symptoms. Tolerating physical therapy. Physical Exam Physical Exam: On exam she has good strength testing appears more comfortably. Results & Data Vital Signs (Past 12 Hours) Vital Signs Temp Pulse Pulse Resp BP BP Pulse Ox 04/10/19 07:59 36.5 C 98 H 20 124/68 95 04/09/19 23:45 37.3 C 98 H 16 144/95 H 93
[2019-04-10] MEDS: OXYCODONE HCL IR 5 MG TAB (IMMEDIATE RELEASE) PO PRN ×2 (16:44→23:33)
--- NOTE | 2019-04-10 19:34 | Hospitalist Progress Note ---
Date of Service April 10, 2019 Assessment & Plan (1) Neurogenic claudication due to lumbar spinal stenosis: Post op day# 3 S/P L3-L5 decompression & fusion by Dr Guzmán -pain management per ortho -wound management per ortho -PT/OT as appropriate -DVT prophylaxis per ortho -incentive spirometry -Hgb: 9.5 (stable) but down from 12.8 pre-op. Likely dilutional, and expected acute blood loss post surg. - Monitor H&H. (2) Tachycardia: Post op HR 90s-low 100s However also hypotensive yesterday, requiring IVF -Monitor HR (3) Leukocytosis: WBC: 17, from 12.8 pre-op - likely secondary to perioperative steroids, post-operative state, now down to 13k - Currently no signs of infection patient is clinically much improved -Monitor CBC and monitor for signs of infection and may need to consider further workup (4) Hypothyroidism: -Continue with thyroxine (5) Fibromyalgia: (6) Anxiety and depression: -Continue home medications (7) GERD (gastroesophageal reflux disease): -Continue PPI (8) DVT prophylaxis: -Teds/SCDs as per spine orthopedics Subjective No acute events overnight. Patient is very comfortable today, laying in bed. She has no episodes of low blood pressures, lightheadedness, dizziness. She also denies any fevers, chills, chest pain, shortness of breath, abdominal pain, nausea or vomiting. Review of Systems Review of Systems: All systems reviewed & are unremarkable except as noted in HPI & below Constitutional: no fever and no chills Respiratory: no cough, no dyspnea and no pain on inspiration Cardiovascular: no chest pain, no dyspnea on exertion, no palpitations and no edema Gastrointestinal: no abdominal pain, no nausea and no vomiting Physical Exam Physical Exam: General: Elderly female lying in bed in no acute distress, pleasant and comfortable Head: normocephalic, atraumatic Eyes: conjunctiva non-injected, PERRL, EOMI, anicteric sclerae ENT: normal inspection external ears, nose, mucous membranes moist Neck: supple, trachea midline Lungs: no respiratory distress, clear to auscultation bilaterally,no wheezing/rhonchi/rales CV: RRR, no murmur, no pretibial edema Abd: normal BS, soft, non-tender, nondistended, no guarding Back: surgical dressing in place, drain in place with serosanguineous drainage, no edema, erythema or hematoma noted on back inspection Ext: no cyanosis, no calf tenderness, distal pulses intact, sensation to light touch intact, moves all 4 extremities spontaneously Neuro: A&O x 3, no focal deficits noted, normal affect, moves all 4 extremities spontaneously Skin: warm, dry Results & Data Vital Signs (Past 12 Hours) Vital Signs Temp Pulse Pulse Resp BP Pulse Ox 04/10/19 15:18 37.1 C 91 H 17 100/68 93 04/10/19 12:11 36.9 C 88 18 126/70 93 04/10/19 07:59 36.5 C 98 H 20 124/68 95
[2019-04-10] MEDS: LORazepam 0.5 MG TAB PO PRN (20:46)
[2019-04-10] MEDS: SIMVASTATIN 40 MG TAB PO SCH (20:47)
[2019-04-10] MEDS: DOCUSATE SODIUM/SENNA 50/8.6MG TAB PO SCH (20:47)
[2019-04-10] MEDS: QUETIAPINE FUMARATE 100 MG TABLET PO SCH (20:47)
[2019-04-11] MEDS: OXYCODONE HCL IR 5 MG TAB (IMMEDIATE RELEASE) PO PRN ×2 (05:57→11:59)
[2019-04-11] MEDS: LEVOTHYROXINE SODIUM 75 MCG TABLET PO SCH (05:58)
[2019-04-11] MEDS: LORazepam 0.5 MG TAB PO PRN (08:19)
--- NOTE | 2019-04-11 08:44 | Discharge Summary ---
Date of Service April 11, 2019 Admission HPI Per Admitting Provider This is a 68-year-old female who presents with chronic persistent back and leg symptoms. After failing extensive course of nonoperative care she is here for surgical intervention. Admission Exam (Per Admitting) Constitutional WD/WN, vitals as above well developed Eyes normal visual cook by confrontation ENMT external ear and nose normal, oropharynx normal Neck normal visual inspection Respiratory normal respiratory effort Cardiovascular Extremities: normal capillary refill Gastrointestinal (Abdomen) Inspection/Auscultation: abdomen normal to inspection Musculoskeletal Extremities: extremities normal to inspection and strength 5/5 throughout Skin no rashes, warm and dry Neurologic patellar DTR's 2+ bilat, sensation intact normal touch/pain/proprioception and deep tendon reflexes 2+ bilaterally Psychiatric A+Ox3, euthymic affect Discharge Data Consultations 04/07/19 14:54 Consult Case Management - Discharge Planning Routine Consult Hospitalist Routine Procedures Performed Operation Date: 04/07/19 09:35 Actual Procedures p L3-L5 Decompression Fusion, Spinal Cord Monitoring(Not Applicable) - Oj Guzmán DO Hospital Course (1) Neurogenic claudication due to lumbar spinal stenosis: Patient is being discharged home on postop day 4. Postoperative day 3 she was found to be hypotensive. This was treated with IV fluids. Otherwise she has been making progress in physical therapy. She had a bowel movement prior to discharge. Discharge Instructions ACTIVITY RECOMMENDATIONS: SELF CARE INSTRUCTIONS AFTER THORACIC/LUMBAR FUSIONS 1. You may walk to your tolerance. It is good exercise for your legs and back. Expect some back and intermittent leg aches and pains. 2. You may perform "counter-top" level activities (make a sandwich, nelly with a project, etc.). 3. No bending or lifting of more than 10 pounds or back twisting of any nature (roll like a log when turning in bed). 4. You may ride in a car for 20-30 minutes at a time. No driving until after your first visit with your doctor. 5. Frequent changes of position and restricting sitting to 30 minutes at a time will help limit the amount of back spasms and stiffness you may experience. 6. You may discontinue the use of ambulatory aids (cane, crutches, etc.) once your strength and confidence allow. 7. You may foam cutting supervisor the shower and let water strike your incision when you arrive home at least once daily. Do not take a tub bath, sit in a hot tub or go into a swimming pool until after your first recheck in the office. SPECIAL CARE INSTRUCTIONS: VERY IMPORTANT TO READ AND REVIEW A. Your surgical incision has been closed with a cosmetic suture under the skin that will dissolve in about 6 weeks. In 14 days, you can use a pair of clean scissors and cut the suture that is left outside of the skin at the ends of your incision. 1. The small skin tapes can be removed 7 days after surgery if they have not fallen off by that point. 2. You may keep the wound open to air as much as possible to promote healing after post-op day number 5 unless told otherwise by your doctor. 3. If you think the wound looks like it is becoming infected (redness or worsening drainage) and/or you are experiencing fever, chill or worsening back pain and muscle spasms, contact the office so that we may evaluate you as soon as possible. B. Complications are uncommon, but please contact us if you have any signs or symptoms of: 1. wound infection (fever higher than 102.5 degrees F, redness, separation of wound, drainage, or increasing pain from the incision) 2. blood clots in legs (pain, swelling, redness and warmth in legs) 3. urinary tract infection (fever higher than 102.5 degrees F, burning upon urination or increased frequency of urination) 4. nerve problems (inability to walk on your toes or heels, numbness, loss of bowel or bladder control) 5. any other symptoms that concern you C. Please call the office at if you have any concerns or questions about your operation or recovery. D. No smoking! Smoking drastically decreases the chance of a solid fusion. E. Do not take any anti-inflammatory medications (Indocin, Advil, Motrin, Aspirin, Naprosyn, etc.) as these may inhibit the chance of a solid fusion. Tylenol is okay to take for pain. MANAGING PAIN AFTER SPINAL SURGERY 1. Narcotic medication is intended for short-term use and will be provided for surgical pain. Surgical pain usually lasts for a period of 4-6 weeks. Narcotic medication includes Percocet, Vicodin, Darvocet, Tylenol #3 or Lortab. 2. Longer-term pain is more appropriately treated with non-narcotic medication such as Tylenol ES. 3. Muscle spasm is not appropriately treated with narcotics. Muscle relaxers such as Soma, Flexeril or Skelaxin can be used along with Tylenol ES. 4. Remember that we all live with some "aches and pains". This is not unusual or uncommon after an injury or as we get older. a. Back pain is expected and may include muscle spasms for 4 to 6 weeks after surgery. The pain should gradually improve. If the pain worsens for no apparent reason, please contact the office. b. Intermittent leg pain may also be experienced and should not be concerned about unless it worsens for no apparent reason. If so, please contact the office. 5. We will provide appropriate medication within the normal guidelines of their prescribed use. We will also be very cautious and aware of potential abuse and extended duration of patients' medication needs. a. Pain medications are for your comfort and to assist with sleep and rest so that the tissue can heal. They are not provided in order to return to normal activity and should not be used through the day. To do so or worsening pain at night can result from ongoing tissue damage and development of tolerance to the prescribed medicine. 6. Please allow 2-3 days to process refills. Prescriptions will not be mailed but must be picked up at the office. FOLLOW UP VISIT: Keep your scheduled follow-up appointment. Any questions, please call the office at . Supervising Physician Co-Signing Physician Notes Dr. Oj Guzmán
[2019-04-11] MEDS: SUMAtriptan succinate 50 MG TAB PO PRN (09:52)
[2019-04-11] MEDS: PANTOprazole 40 MG TAB PO SCH (09:52)
[2019-04-11] MEDS: DULOXETINE HCL 60 MG CAP PO SCH (09:52)
--- NOTE | 2019-04-11 12:50 | Hospitalist Progress Note ---
Date of Service April 11, 2019 Assessment & Plan (1) Neurogenic claudication due to lumbar spinal stenosis: Post op day# 4 S/P L3-L5 decompression & fusion by Dr Guzmán -pain management per ortho -wound management per ortho -PT/OT as appropriate -DVT prophylaxis per ortho -incentive spirometry -Hgb: 9.5 (stable) but down from 12.8 pre-op. Likely dilutional, and expected acute blood loss post surg. - Monitor H&H. (2) Tachycardia: Post op HR 90s-low 100s However also hypotensive 2 days ago, requiring IVF, no other hypotensive episodes, patient ambulates without difficulty feels well -Discussed her caffeine intake, and proper hydration -Monitor HR (3) Leukocytosis: WBC: 17, from 12.8 pre-op - likely secondary to perioperative steroids, post-operative state, now down to 13k - Currently no signs of infection patient is clinically much improved -Monitor CBC and monitor for signs of infection and may need to consider further workup (4) Hypothyroidism: -Continue with thyroxine (5) Fibromyalgia: (6) Anxiety and depression: -Continue home medications (7) GERD (gastroesophageal reflux disease): -Continue PPI (8) DVT prophylaxis: -Teds/SCDs as per spine orthopedics Subjective No acute events overnight. Patient is walking around physical therapist. She has had no other episodes of hypotension, lightheadedness, dizziness. She also denies any fevers, chills, chest pain, shortness of breath, abdominal pain, nausea or vomiting. She was slightly tachycardic during my exam, after she walked around the hallways, likely secondary to her ambulation. Also discussed her caffeine intake, and proper hydration. Review of Systems Review of Systems: All systems reviewed & are unremarkable except as noted in HPI & below Constitutional: no fever and no chills Respiratory: no cough, no dyspnea and no pain on inspiration Cardiovascular: no chest pain, no dyspnea on exertion, no palpitations and no edema Gastrointestinal: no abdominal pain, no nausea and no vomiting Physical Exam Physical Exam: General: Elderly female in no acute distress, pleasant and comfortable Head: normocephalic, atraumatic Eyes: conjunctiva non-injected, PERRL, EOMI, anicteric sclerae ENT: normal inspection external ears, nose, mucous membranes moist Neck: supple, trachea midline Lungs: no respiratory distress, clear to auscultation bilaterally,no wheezing/rhonchi/rales CV: RRR, no murmur, no pretibial edema Abd: normal BS, soft, non-tender, nondistended, no guarding Back: surgical dressing in place, no edema, erythema or hematoma noted on back inspection Ext: no cyanosis, no calf tenderness, distal pulses intact, sensation to light touch intact, moves all 4 extremities spontaneously Neuro: A&O x 3, no focal deficits noted, normal affect, moves all 4 extremities spontaneously Skin: warm, dry Results & Data Vital Signs (Past 12 Hours) Vital Signs Temp Pulse Pulse Pulse Resp BP BP 04/11/19 08:27 37.2 C 88 110 H 101 H 18 100/68 129/68 04/11/19 05:59 37.2 C 110 H 18 129/68 Pulse Ox 04/11/19 08:27 94 04/11/19 05:59 94
== END 2019-04-11 13:09 | disposition home or self-care (01) | DRG 454 ==
LOC: ASU 07:54 → 3E 13:40

== ENCOUNTER 2022-10-12 08:02 | Inpatient (IN) ==
--- NOTE | 2022-09-27 10:17 | PAT Medication Instructions ---
Medication Instructions Date of Service September 27, 2022 Home Medications lorazepam 1 mg tablet 1 mg PO TID PRN simvastatin 40 mg tablet 40 mg PO HS Lactobacillus acidophilus 10 billion cell capsule (Probiotic) 10,000 mmu cells PO DAILY biotin 1 mg capsule 1 mg PO DAILY cholecalciferol (vitamin D3) 125 mcg (5,000 unit) tablet (Vitamin D3) 125 mcg PO QAM colestipol 1 gram tablet 1 g PO BID cyclobenzaprine 10 mg tablet 10 mg PO TID PRN dicyclomine 10 mg capsule 10 mg PO TID PRN ferrous sulfate 325 mg (65 mg iron) tablet 325 mg PO DAILY furosemide 20 mg tablet 20 mg PO DAILY PRN gabapentin 300 mg capsule 300 mg PO TID levothyroxine 88 mcg tablet 88 mcg PO QAM milnacipran 100 mg tablet (Savella) 100 mg PO BID montelukast 10 mg tablet 10 mg PO QAM multivitamin 1 tab PO DAILY naproxen 500 mg tablet 500 mg PO BID PRN ondansetron 8 mg disintegrating tablet 8 mg PO Q12H PRN pantoprazole 40 mg tablet,delayed release 40 mg PO QAM quetiapine 300 mg tablet,extended release 24 hr (Seroquel XR) 300 mg PO HS sumatriptan succinate 100 mg tablet 100 mg PO UD PRN Check if prescriber has perioperative recommendations quetiapine 300 mg tablet,extended release 24 hr (Seroquel XR) 300 mg PO HS Continue as directed sumatriptan succinate 100 mg tablet 100 mg PO UD PRN(if needed) ASK your surgeon for instructions naproxen 500 mg tablet 500 mg PO BID PRN ASK your prescriber and surgeon milnacipran 100 mg tablet (Savella) 100 mg PO BID STOP taking 2 weeks before surgery (or as soon as possible if surgery is within 2 weeks) Lactobacillus acidophilus 10 billion cell capsule (Probiotic) 10,000 mmu cells PO DAILY biotin 1 mg capsule 1 mg PO DAILY STOP taking 48 hours before surgery colestipol 1 gram tablet 1 g PO BID DO NOT take the morning of surgery cholecalciferol (vitamin D3) 125 mcg (5,000 unit) tablet (Vitamin D3) 125 mcg PO QAM cyclobenzaprine 10 mg tablet 10 mg PO TID PRN dicyclomine 10 mg capsule 10 mg PO TID PRN ferrous sulfate 325 mg (65 mg iron) tablet 325 mg PO DAILY furosemide 20 mg tablet 20 mg PO DAILY PRN multivitamin 1 tab PO DAILY Take morning of surgery With a small sip of water, OTHERWISE NOTHING TO EAT OR DRINK AFTER MIDNIGHT: lorazepam 1 mg tablet 1 mg PO TID PRN(if needed) gabapentin 300 mg capsule 300 mg PO TID levothyroxine 88 mcg tablet 88 mcg PO QAM montelukast 10 mg tablet 10 mg PO QAM ondansetron 8 mg disintegrating tablet 8 mg PO Q12H PRN(if needed) pantoprazole 40 mg tablet,delayed release 40 mg PO QAM Take evening before surgery lorazepam 1 mg tablet 1 mg PO TID PRN(if needed) simvastatin 40 mg tablet 40 mg PO HS cyclobenzaprine 10 mg tablet 10 mg PO TID PRN(if needed) dicyclomine 10 mg capsule 10 mg PO TID PRN(if needed) gabapentin 300 mg capsule 300 mg PO TID ondansetron 8 mg disintegrating tablet 8 mg PO Q12H PRN(if needed) Other Notes If you have any questions please call us at [phone] or [phone] or [phone] or [phone]
--- NOTE | 2022-10-03 13:32 | Anesthesiology Consultation ---
Date of Service October 03, 2022 Assessment & Plan (1) Encounter for pre-operative examination: Chart Review Chart Review: Acceptable Risk for Surgery (pending PCP clearance with response on dizziness/creatinine ) and Patient seen in Pre Admission Testing - Awaiting PCP clearance 10/10/22 (send optimization note re: dizziness and elevated creatinine with preop testing to PCP) Per PAT appt on 10/03/22, patient denies any recent travel or large group activities. Pt is vaccinated for Covid. Will leave to surgeon's discretion if preop Covid testing needed. Educated on importance of using Covid precautions one week prior to surgery L3-L5 decompression with posterior fusion 04/07/19= Done under GA with Grade 1 view with MAC #3. ETT #7.0. Teaching & Discussion Pre-Anesthesia Teaching/Discussion Notes: Instructed NPO after midnight before surgery,except medications with 15 cc of water. Medication instructions provided according to the PAT guidelines. History Surgery Operation Date: 10/12/22 10:20 Proposed Procedures p L2-L3 Decompression and Fusion (Attach to Previous Hardware), Spinal Cord Monitoring - Oj Guzmán DO Height/Weight Height: 5 ft 3 in Weight: 91.9 kg Allergies Allergy/AdvReac Type Severity Reaction Status Date / Time latex Allergy Intermediate red and Verified 09/26/22 15:34 swelling face Penicillins Allergy Intermediate hives, GI Verified 09/26/22 15:34 upset Sulfa (Sulfonamide Allergy Intermediate hives Verified 09/26/22 15:34 Antibiotics) meloxicam AdvReac Mild diarrhea Verified 09/26/22 15:34 Medications Home Medications Medication Instructions Recorded Confirmed Last Taken lorazepam 1 mg tablet 1 mg PO TID PRN Anxiety 03/18/19 09/26/22 Unknown simvastatin 40 mg tablet 40 mg PO HS 03/18/19 04/07/19 04/06/19 21:00 Lactobacillus acidophilus 10 10,000 mmu cells PO DAILY 09/26/22 09/26/22 Unknown billion cell capsule (Probiotic) biotin 1 mg capsule 1 mg PO DAILY 09/26/22 09/26/22 Unknown cholecalciferol (vitamin D3) 125 125 mcg PO QAM 09/26/22 09/26/22 Unknown mcg (5,000 unit) tablet (Vitamin D3) colestipol 1 gram tablet 1 g PO BID 09/26/22 09/26/22 Unknown cyclobenzaprine 10 mg tablet 10 mg PO TID PRN Pain 09/26/22 09/26/22 Unknown dicyclomine 10 mg capsule 10 mg PO TID PRN Abdominal Pain 09/26/22 09/26/22 Unknown ferrous sulfate 325 mg (65 mg 325 mg PO DAILY 09/26/22 09/26/22 Unknown iron) tablet furosemide 20 mg tablet 20 mg PO DAILY PRN FLUID 09/26/22 09/26/22 Unknown RESTRICTION gabapentin 300 mg capsule 300 mg PO TID 09/26/22 09/26/22 Unknown levothyroxine 88 mcg tablet 88 mcg PO QAM 09/26/22 09/26/22 Unknown milnacipran 100 mg tablet (Savella) 100 mg PO BID 09/26/22 09/26/22 Unknown montelukast 10 mg tablet 10 mg PO QAM 09/26/22 09/26/22 Unknown multivitamin 1 tab PO DAILY 09/26/22 09/26/22 Unknown naproxen 500 mg tablet 500 mg PO BID PRN Pain 09/26/22 09/26/22 Unknown ondansetron 8 mg disintegrating 8 mg PO Q12H PRN NAUSEA 09/26/22 09/26/22 Unknown tablet pantoprazole 40 mg tablet,delayed 40 mg PO QAM 09/26/22 09/26/22 Unknown release quetiapine 300 mg tablet,extended 300 mg PO HS 09/26/22 09/26/22 Unknown release 24 hr (Seroquel XR) sumatriptan succinate 100 mg tablet 100 mg PO UD PRN Migraine Headache 09/26/22 09/26/22 Unknown Past Medical History Medical History Anxiety and depression Degenerated intervertebral disc Fibromyalgia Stable currently GERD (gastroesophageal reflux disease) Well controlled and stable High cholesterol History of blood transfusion 1970's after childbirth Hx of herpes simplex infection Valtrex PRN Hypothyroidism IBS (irritable bowel syndrome) Low blood pressure No medications needed Occ dizziness - x months - intermittent Obesity Prediabetes Hgb A1C 6.1 on 09/06/22 Sciatica Exercise / Class Metabolic Activity II 4-5 Yardwork/Stairs/Walk up hill (one flight of stairs - no chest pain or SOB ) Past Family History Family History Father Diabetes Abdominal aortic aneurysm Colorectal cancer Other No family history of adverse response to anesthesia Past Surgical History Surgical History Fusion of spine History of cataract surgery RT/LEFT History of esophagogastroduodenoscopy (EGD) History of tooth extraction History of total right knee replacement Hx of cholecystectomy Hx of colonoscopy Hx of shoulder surgery RIGHT AND LEFT Hx of total hysterectomy Nausea and vomiting after administration of anesthetic agent Past Anesthesia History No Hx of Anesthesia Complications (with exception to PONV ) and No Family Hx of Anesthesia Complications History of PONV History of PONV (improved with anti-nausea medication perioperatively ) and Hx of Motion Sickness Social History Smoking Status: Former smoker tobacco type: cigarettes Do You Dip or Chew Tobacco: No Smoking End Date: 1993 Hx Alcohol Use: Yes alcohol intake frequency: holidays/special occasions only substance use type: does not use Review of Systems Snoring- no witnessed apnea- no hx of sleep study Hx of blood transfusion after childbirht 1970 Dizziness x months- no specific triggers- hx of hypotension but denies issues with change in positions. Usually sits down (dizziness last minutes and then resolves). Did have fall in Jun 2022 Patient denies chest pain, shortness of breath, dyspnea on exertion, cough, wheezing, palpitations. No hx of seizures, stroke, IA. No hx of blood clots Physical Exam Vital Signs VITALS BP 104/72 P 100 TEMP 98.2 SP02 95% RESP 16 Constitutional no acute distress ENMT Mouth: no TMJ clicking Thyromental Distance: > or= 3.5 Finger Breadths (4.0) Mallampati Class: III Top partial denture Missing bottom side teeth and molars Neck + limited neck extension (significant ) Respiratory normal respiratory effort; no respiratory distress Auscultation: lungs clear to auscultation bilaterally; no wheezes Cardiovascular Rate/Rhythm: regular rate and regular rhythm Heart Sounds: no murmur Vessels: no carotid bruit Musculoskeletal Spine: no pain with cervical ROM Extremities: extremities normal to inspection Psychiatric Orientation: alert Lab Results Anesthesia Preop Results Results Anesthesia Widget: WBC 7.69 K/ul (4.8-10.8) 10/03/22 Hgb 11.6 g/dl (12.0-16.0) L 10/03/22 Hct 36.5 % (37.0-47.0) L 10/03/22 Plt 344 K/uL (130-400) 10/03/22 Na 138 mmol/L (136-145) 10/03/22 K 4.6 mmol/L (3.5-5.1) 10/03/22 Cl 106 mmol/L (98-107) 10/03/22 CO2 27 mmol/L (21-32) 10/03/22 BUN 19 mg/dl (6-23) 10/03/22 Creat 1.32 mg/dl (0.6-1.2) H 10/03/22 Glucose Level 88 mg/dl (70-99(Fasting)) 10/03/22 PT 10.9 Seconds (9.0-12.0) 10/03/22 PTT 23.3 Seconds (21.0-31.0) 10/03/22 INR 1.0 (0.9-1.1) 10/03/22 Urine Color Yellow 10/03/22 Urine Appearance Clear (Clear) 10/03/22 Urine pH 5.5 (4.5-7.5) 10/03/22 Urine Specific [place] 1.010 (1.000-1.030) 10/03/22 Urine Protein Negative (Negative) 10/03/22 Urine Glucose (UA) Negative (Negative) 10/03/22 Urine Ketones Negative (Negative) 10/03/22 Urine Blood Negative (Negative) 10/03/22 Urine Nitrite Negative (Negative) 10/03/22 Urine Bilirubin Negative (Negative) 10/03/22 Urine Urobilinogen Negative (Negative) 10/03/22 Urine Leukocyte Esterase Negative (Negative) 10/03/22 Blood Type O Positive 10/03/22 Antibody Screen NEGATIVE 10/03/22 Testing Laboratory Results Anemia chronic and mildly improved from 2018 Electrocardiogram Date: 10/03/22 Findings: + NSR @ (91bpm ) Normal EKG per cardio Chest X-Ray Date: 10/03/22 Findings: + NAD FINDINGS: PA and lateral chest radiographs are compared to study dated 03/27/2019. The cardiomediastinal silhouette is unremarkable. The lungs and pleural spaces are clear. There is no pneumothorax. The skeletal structures are osteopenic. The bony thorax appears intact. Degenerative change is noted in the thoracic spine. Fusion hardware is partially visualized in the lumbar spine. Cholecystectomy clips are noted in the right upper quadrant. COVID-19 Risk Screen Screening Information COVID-19 Screen Date: 10/03/22 Exposure 21 Days Family/Household +COVID Last 21 Days: No Exposure 10 Days Any COVID Exposure Last 10 Days: No Symptoms Last 10 Days Experienced COVID Sx Last 10 Days: No + COVID 0-90 Days COVID + in Last 0-90 Days: No Risk Plan COVID Risk Plan: No Risk Identified Patient Education COVID Preop Screening Education Complete: Yes
[~2022-10-12 08:02] MED LIST changes: -CLINDAMYCIN 600 MG/54 ML BAG IV SCH; +CLINDAMYCIN/D5W 900 MG/50 ML BAG IV SCH; -CeleBREX 200 MG CAP PO SCH; -HYDROmorphone INJ 2 MG/ML SYR/VIAL ONE; -MIDAZOLAM HCL 1 MG/ML 2ML VIAL ONE; -fentaNYL citrate 100 MCG/2 ML VIAL ONE
[2022-10-12] MEDS ORDERED: GLYCOPYRROLATE 0.2 MG/ML VIAL ONE (09:10)
[2022-10-12] MEDS ORDERED: MIDAZOLAM HCL 1 MG/ML 2ML VIAL ONE (09:10)
[2022-10-12] MEDS ORDERED: fentaNYL citrate PF 100 MCG/2 ML VIAL ONE (09:10)
[2022-10-12] MEDS ORDERED: ROCURONIUM BROMIDE 10 MG/ML 5 ML VIAL IV ONE (09:10)
[2022-10-12] MEDS ORDERED: LIDOCAINE 2% 2 ML VIAL/AMP(20MG/ML) INFIL ONE (09:10)
[2022-10-12] MEDS ORDERED: NEOSTIGMINE METHYLSULFATE 1 MG/ML 10ML VIAL ONE (09:10)
[2022-10-12] MEDS ORDERED: PROPOFOL IV EMULSION 10 MG/ML 20 ML VIAL IV ONE (09:10)
--- NOTE | 2022-10-12 09:22 | History & Physical Bridge Note ---
Date of Service October 12, 2022 History & Physical Bridge Note I have examined the patient, reviewed the History & Physical and in the interval since the performance of the History & Physical I have noted the following changes of clinical significance: no changes noted
--- NOTE | 2022-10-12 09:23 | History & Physical Report ---
Date of Service October 12, 2022 Assessment & Plan (1) Neurogenic claudication due to lumbar spinal stenosis: Plan: L2-L3 decompression and fusion, attached to previous hardware versus possible hardware removal History of Present Illness Chief Complaint: Back and leg pain Primary Care Provider: Brooklyn Carlson DO This is a 72-year-old female who presents with chronic persistent back and leg pain after failing course of nonoperative care she is here for surgical intervention. Allergies Allergy/AdvReac Type Severity Reaction Status Date / Time latex Allergy Intermediate red and Verified 10/12/22 08:22 swelling face Penicillins Allergy Intermediate hives, GI Verified 10/12/22 08:22 upset Sulfa (Sulfonamide Allergy Intermediate hives Verified 10/12/22 08:22 Antibiotics) meloxicam AdvReac Mild diarrhea Verified 10/12/22 08:22 Home Medications Medication Instructions Recorded Confirmed Type lorazepam 1 mg tablet 1 mg PO TID PRN Anxiety 03/18/19 10/12/22 History simvastatin 40 mg tablet 40 mg PO HS 03/18/19 10/12/22 History Lactobacillus acidophilus 10 10,000 mmu cells PO DAILY 09/26/22 10/12/22 History billion cell capsule (Probiotic) biotin 1 mg capsule 1 mg PO DAILY 09/26/22 10/12/22 History cholecalciferol (vitamin D3) 125 125 mcg PO QAM 09/26/22 10/12/22 History mcg (5,000 unit) tablet (Vitamin D3) colestipol 1 gram tablet 1 g PO BID 09/26/22 10/12/22 History cyclobenzaprine 10 mg tablet 10 mg PO TID PRN Pain 09/26/22 10/12/22 History dicyclomine 10 mg capsule 10 mg PO TID PRN Abdominal Pain 09/26/22 10/12/22 History ferrous sulfate 325 mg (65 mg 325 mg PO DAILY 09/26/22 10/12/22 History iron) tablet furosemide 20 mg tablet 20 mg PO DAILY PRN FLUID 09/26/22 10/12/22 History RESTRICTION gabapentin 300 mg capsule 300 mg PO TID 09/26/22 10/12/22 History levothyroxine 88 mcg tablet 88 mcg PO QAM 09/26/22 10/12/22 History milnacipran 100 mg tablet (Savella) 100 mg PO BID 09/26/22 10/12/22 History montelukast 10 mg tablet 10 mg PO QAM 09/26/22 10/12/22 History multivitamin 1 tab PO DAILY 09/26/22 10/12/22 History naproxen 500 mg tablet 500 mg PO BID PRN Pain 09/26/22 10/12/22 History ondansetron 8 mg disintegrating 8 mg PO Q12H PRN NAUSEA 09/26/22 10/12/22 History tablet pantoprazole 40 mg tablet,delayed 40 mg PO QAM 09/26/22 10/12/22 History release quetiapine 300 mg tablet,extended 300 mg PO HS 09/26/22 10/12/22 History release 24 hr (Seroquel XR) sumatriptan succinate 100 mg tablet 100 mg PO UD PRN Migraine Headache 09/26/22 10/12/22 History Past Med/Surg History Medical History Anxiety and depression Degenerated intervertebral disc Fibromyalgia Stable currently GERD (gastroesophageal reflux disease) Well controlled and stable High cholesterol History of blood transfusion 1969's after childbirth Hx of herpes simplex infection Valtrex PRN Hypothyroidism IBS (irritable bowel syndrome) Low blood pressure No medications needed Occ dizziness - x months - intermittent Obesity Prediabetes Hgb A1C 6.1 on 09/06/22 Sciatica Surgical History Fusion of spine History of cataract surgery RT/LEFT History of esophagogastroduodenoscopy (EGD) History of tooth extraction History of total right knee replacement Hx of cholecystectomy Hx of colonoscopy Hx of shoulder surgery RIGHT AND LEFT Hx of total hysterectomy Nausea and vomiting after administration of anesthetic agent Family History Father Diabetes Abdominal aortic aneurysm Colorectal cancer Other No family history of adverse response to anesthesia Social History Smoking Status: Former smoker Smoking End Date: 1993; Second Hand Exposure: Yes ( A CHILD); Do You Dip or Chew Tobacco: No; Hx Alcohol Use: Yes Preferred Language: Pakistani Communication Ability: Effective Distribution Systems Serviceperson Required: No Beliefs That Will Affect Care: None marital status: Current Living Situation: Spouse Feels Safe at Home: Yes Safety Concerns: Feels Safe At This Time Assistive Devices: Denture - Upper and Glasses Physical Exam Physical Exam: Patient is alert and oriented Heart regular rhythm Lungs clear Results & Data Results & Data Vital Signs (Past 12 Hours) Vital Signs Temp Pulse Resp BP Pulse Ox O2 Del Method 10/12/22 08:34 36.9 C 92 H 20 163/91 H 95 Room Air
[2022-10-12] MEDS ORDERED: BUPIVACAINE/EPINEPHRINE 0.25% 1:200,000 30 ML VIAL ONE (09:38)
[2022-10-12] MEDS ORDERED: SCOPOLAMINE 1 MG TDSY TD ONE ×2 (09:40→09:41)
[2022-10-12] MEDS ORDERED: ONDANSETRON INJ 2 MG/ML 2 ML VIAL IV PRN (09:41)
[2022-10-12] MEDS ORDERED: ePHEDrine sulfate 50 MG/ML AMP IV PRN (09:41)
[2022-10-12] MEDS ORDERED: ATROPINE SULFATE 0.1 MG/ML 10ML SYR IV PRN (09:41)
[2022-10-12] MEDS ORDERED: DEXAMETHASONE SOD INJ 4 MG/ML VIAL ONE (10:11)
[2022-10-12] MEDS ORDERED: ONDANSETRON INJ 2 MG/ML 2 ML VIAL ONE ×2 (10:11→11:40)
[2022-10-12] MEDS ORDERED: FLOSEAL HEMOSTATIC MATRIX 10ML TOP ONE (10:25)
--- NOTE | 2022-10-12 11:33 | Operative Report ---
Post Operative Report Pre & Post Diagnosis Operation Date: 10/12/22 09:35 Pre-Op Diagnosis: Neurogenic claudication due to lumbar spinal stenosis, L2-L3 Post-Op Diagnosis: Neurogenic claudication due to lumbar spinal stenosis, L2-L3 I identified the patient and participated in the time-out.: Yes Procedure Operation Date: 10/12/22 09:35 Actual Procedures #1 removal of posterior instrumentation L3-L5. #2 exploration of fusion L3 L5. #3 lumbar decompression with bilateral medial facetectomies and foraminotomies L1-L2 L2-L3. #4 posterior spinal fusion L2-L3. #5 placement posterior instrumentation L2-L3. #6 interbody fusion L2-L3. #7 placement of Spira 12 x 26 mm cage at L2-L3. #8 placement locally harvested morselized autograft in the posterior gutters. #9 placement I factor bone of the test and interbody space and posterior lateral gutters. Surgeon Oj Guzmán, DO Dip Tanker August Sullivan Estimated Blood Loss 250 Findings See Below The patient is 5 foot 3 weighing over 97 kg with a BMI in excess of 38. Patient's body habitus did contribute to significant technical difficulty required deepest retractors and longer instruments in order to perform her procedure. This at least 50% increased operative time. Specimens None Indications This is a 72-year-old female who presents above-mentioned diagnosis after failed course of nonoperative care she is here for surgical invention. Description of Procedure Patient met with identified informed consent obtained. Patient was then taken to the operative suite underwent a patient placed in a prone position on Darvin table top Juan frame. All bony promises well-padded eyes inspected to ensure no external pressure placed upon up at this point lumbar spine was prepped and draped no sterile fashion. Sharp dissection with the assistance of Bovie cautery performed down to and exposing the instrumentation at L3-L4-L5 and the transverse processes of L2. I then remove the hardware at L3-L5 explored the fusion mass noted to be mature and intact. Informed complete laminectomy of L2 partial and active L1 including bilateral medial facetectomies and foraminotomies addressing severe spinal stenosis. Pedicle screws then placed in L2-L3 bilaterally with assistance of fluoroscopy and appropriately sized tran placed. By way of transforaminal approach on the left pleat discectomy of L2-L3 was performed endplates curetted to subcortical bleeding bone and a 12 x 26 mm Spira cage with I factor tapped the position. The rods were then locked into final position bilaterally. The transverse processes of L2-L3 burred to subcortical bleeding bone. I factor bone with V toss and locally harvested morselized autograft placed in the posterior gutters. 15 round KANU drain inserted. Incision was then closed with 1 Vicryl fascia 2-0 Vicryl subcutaneously and 4 Monocryl for final skin closure. Steri-Strips sterile dressing placed. Patient awakened taken to PACU in stable condition. Please note spinal cord monitoring was utilized at the procedure no changes noted. Lastly August Sullivan was present at the entire surgery involved the patient positioning complex portions of the surgery and final skin closure. I attest to the content of the Intraoperative Record and any orders documented therein. Any exceptions are noted below.
--- NOTE | 2022-10-12 11:41 | Fluoroscopy Report ---
FL lumbar spine 2-3V CLINICAL HISTORY: L2-L3 DECOMPRESSION COMPARISON STUDY: None. FLUOROSCOPY TIME: 13 seconds FLUOROSCOPY IMAGES: 2 Ka,r: 10.9 mGy FINDINGS: Posterior decompression fusion at L2-L3 with pedicle screws and rods. The hardware appears intact. A disc spacer is in place. IMPRESSION: Fluoroscopic assistance as above. ACT 112: Negative or not required by law. Electronically signed by: Nikolay Law M.D. 10/12/2022 11:39 AM
[2022-10-12] MEDS: fentaNYL citrate PF 100 MCG/2 ML VIAL IV PRN ×8 (12:02→12:37)
[2022-10-12] MEDS: HYDROmorphone INJ 1 MG/ML SYRINGE IV PRN ×4 (12:44→12:59)
--- NOTE | 2022-10-12 13:19 | Anesthesiology Progress Note ---
Date of Service October 12, 2022 Anesthesia Post Procedure Vital Signs Vital Signs: Temp Pulse Pulse Resp BP BP Pulse Ox 10/12/22 13:05 96 H 14 124/61 93 10/12/22 12:45 96 H 17 124/70 96 10/12/22 12:35 97 H 12 122/72 95 10/12/22 12:25 92 H 12 126/65 97 10/12/22 12:55 97.2 F L 97 H 15 109/67 94 10/12/22 12:15 93 H 14 111/71 97 10/12/22 12:05 98.4 F 93 H 14 128/87 97 10/12/22 08:34 98.4 F 92 H 20 163/91 H 95 O2 Del Method O2 Flow Rate 10/12/22 13:05 Room Air 3 10/12/22 12:45 Nasal Cannula 4 10/12/22 12:35 Oxymask 4 10/12/22 12:25 Oxymask 4 10/12/22 12:55 Nasal Cannula 3 10/12/22 12:15 Oxymask 6 10/12/22 12:05 Oxymask 6 10/12/22 08:34 Room Air Pain Intensity Bilateral Lower Back: Pain Intensity: 7 Transfer of Care Handoff Completed per policy Notes Mental Status: alert / awake / arousable and participated in evaluation Patient Amnestic to Procedure: Yes Nausea / Vomiting: adequately controlled Pain: adequately controlled Airway Patency, RR, SpO2: stable & adequate BP & HR: stable & adequate Hydration State: stable & adequate Anesthetic Complications: no major complications apparent and Pt Satisfied with anesthetic care
[2022-10-12] MEDS ORDERED: PROMETHAZINE HCL 12.5 MG in SODIUM CHLORIDE 0.9% 50 ML IV PRN (13:37)
[2022-10-12] MEDS ORDERED: DO NOT ADMINISTER FLU VACCINE PRN (13:37)
[2022-10-12] MEDS ORDERED: traMADol HCL 50 MG TABLET PO PRN (13:37)
[2022-10-12] MEDS ORDERED: HYDROmorphone INJ 0.5 MG/0.5 ML SYR IV PRN (13:37)
[2022-10-12] MEDS ORDERED: DICYCLOMINE HCL 10 MG CAP PO PRN (13:37)
[2022-10-12] MEDS ORDERED: ONDANSETRON 4 MG OD TAB PO PRN (13:37)
[2022-10-12] MEDS ORDERED: SOD PHOSPHATE/SOD BIPHOSPHATE ENEMA 132 ML BTL PR PRN (13:37)
[2022-10-12] MEDS ORDERED: NALOXONE HCL 0.4 MG/1 ML VIAL/CARP IV PRN (13:37)
[2022-10-12] MEDS ORDERED: hydrOXYzine HCl 25 MG TAB PO PRN (13:37)
[2022-10-12] MEDS ORDERED: HYDROmorphone INJ 1 MG/ML SYRINGE IV PRN (13:37)
[2022-10-12] MEDS ORDERED: DO NOT ADMINISTER PNEUMOCOCCAL VACCINE PRN (13:37)
[2022-10-12] MEDS ORDERED: FAMOTIDINE 20 MG TAB PO PRN (13:37)
[2022-10-12] MEDS ORDERED: MAGNESIUM HYDROXIDE SUSP 30 ML UDC PO PRN (13:37)
[2022-10-12] MEDS ORDERED: LORazepam 2 MG/1 ML VIAL IV PRN (13:37)
[2022-10-12] MEDS ORDERED: bisacodyL 10 MG SUPP PR PRN (13:37)
[2022-10-12] MEDS ORDERED: SUMAtriptan succinate 100 MG TAB PO PRN (13:37)
[2022-10-12] MEDS ORDERED: METOCLOPRAMIDE HCL INJ 5 MG/ML 2 ML VIAL IV PRN (13:37)
[2022-10-12] MEDS ORDERED: ACETAMINOPHEN 1,000 MG/100 ML VIAL IV PRN (13:37)
[2022-10-12] MEDS ORDERED: FUROSEMIDE 20 MG TAB PO PRN (13:37)
[2022-10-12] MEDS ORDERED: ACETAMINOPHEN 500 MG TAB PO PRN (13:37)
[2022-10-12] MEDS ORDERED: ALUMINUM/MAGNESIUM SUSP 30 ML UDC PO PRN (13:37)
[2022-10-12] MEDS: LACTATED RINGER'S 1,000 ML IV SCH ×2 (13:58→21:00)
--- NOTE | 2022-10-12 14:40 | Consultation ---
Date of Consultation October 12, 2022 Assessment & Plan (1) Status post lumbar surgery: (2) Neurogenic claudication due to lumbar spinal stenosis: Post op day# 0 S/P removal instrumentation L3-L5, decompression and fusion L1-L3 by Dr Arielle FELDER#250ml -pain management per ortho -wound management per ortho -PT/OT as appropriate -DVT prophylaxis per ortho -incentive spirometry -monitor H&H for acute blood loss anemia; pre-op Hgb: 11.6 (3) CKD (chronic kidney disease), stage III: Cr: 1.3. Baseline Cr: 1.1-1.3 -Monitor renal functions, avoid nephrotoxic agents when possible (4) Prediabetes: A1c: 6.1 on 09/06/22 -Recently prescribed ozempic, however hasn't started yet -Monitor AM BSG (5) Chronic anemia: Hgb: 11.6 pre-op. At baseline -Monitor H&H -Continue iron supplement (6) Dyslipidemia: -Continue simvastatin (7) Anxiety and depression: (8) Fibromyalgia: -Continue gabapentin -Continue Seroquel, Savella (9) GERD (gastroesophageal reflux disease): -Continue PPI (10) Hypothyroidism: -Continue hypothyroidism DVT Prophylaxis -SCDs Disposition per primary service Follows with Dr Brooklyn Russell for routine care Pt was seen and care coordinated with Dr Kevin. See addendum Thank you for this consultation. We will follow the patient with you during their hospital stay. You can reach a member of the [facility] Hospitalist Team 10/12 via [employer] I spent a total of 60 minutes reviewing notes, outpatient records, labs, medication, coordinating, documenting and providing care for this patient excluding time spent in the performance of separately billed services. Supervising Physician Co-Signing Physician Notes I have seen and examined the patient and have discussed the case with the provider above. I agree with the assessment and plan as stated. 72 yo F s/p lumbar spinal surgery. Doing well postop. Pain is well controlled. She has no other complaints at this time. Physical exam reveals normal cardiopulmonary exam. Lower extremities are NVI bilaterally. Sensation intact. KANU drain in place. Labs and medications reviewed. Agree with plan as stated above. Thank you for this consultation. DO Herberth History of Present Illness Requesting Physician: Dr Guzmán Reason for Consultation: Post op medical management Attending Physician: Oj Guzmán, DO History of Present Illness Patient is 72 y/o F with PMH dyslipidemia, chronic anemia, CKD III, prediabetes, depression, anxiety, fibromyalgia, GERD, hypothyroidism seen in medical consultation s/p removal instrumentation L3-L5, decompression and fusion L1-L3 today by Dr Guzmán. Post op patient reports low back pain. Also having nausea. Without vomiting. Has scopolamine patch in place and feeling a little better. Had BM this morning. Denies fever/chills, diaphoresis, GOMES, dizziness, neck pain, CP, SOB, palpitations, rhinorrhea, abdominal pain, paresthesias, weakness, extremity edema, rashes, urinary symptoms. Allergies Allergy/AdvReac Type Severity Reaction Status Date / Time latex Allergy Intermediate red and Verified 10/12/22 08:22 swelling face Penicillins Allergy Intermediate hives, GI Verified 10/12/22 08:22 upset Sulfa (Sulfonamide Allergy Intermediate hives Verified 10/12/22 08:22 Antibiotics) meloxicam AdvReac Mild diarrhea Verified 10/12/22 08:22 Home Medications Medication Instructions Recorded Confirmed Type lorazepam 1 mg tablet 1 mg PO TID PRN Anxiety 03/18/19 10/12/22 History simvastatin 40 mg tablet 40 mg PO HS 03/18/19 10/12/22 History Lactobacillus acidophilus 10 10,000 mmu cells PO DAILY 09/26/22 10/12/22 History billion cell capsule (Probiotic) biotin 1 mg capsule 1 mg PO DAILY 09/26/22 10/12/22 History cholecalciferol (vitamin D3) 125 125 mcg PO QAM 09/26/22 10/12/22 History mcg (5,000 unit) tablet (Vitamin D3) colestipol 1 gram tablet 1 g PO BID 09/26/22 10/12/22 History cyclobenzaprine 10 mg tablet 10 mg PO TID PRN Pain 09/26/22 10/12/22 History dicyclomine 10 mg capsule 10 mg PO TID PRN Abdominal Pain 09/26/22 10/12/22 History ferrous sulfate 325 mg (65 mg 325 mg PO DAILY 09/26/22 10/12/22 History iron) tablet furosemide 20 mg tablet 20 mg PO DAILY PRN FLUID 09/26/22 10/12/22 History RESTRICTION gabapentin 300 mg capsule 300 mg PO TID 09/26/22 10/12/22 History levothyroxine 88 mcg tablet 88 mcg PO QAM 09/26/22 10/12/22 History milnacipran 100 mg tablet (Savella) 100 mg PO BID 09/26/22 10/12/22 History montelukast 10 mg tablet 10 mg PO QAM 09/26/22 10/12/22 History multivitamin 1 tab PO DAILY 09/26/22 10/12/22 History naproxen 500 mg tablet 500 mg PO BID PRN Pain 09/26/22 10/12/22 History ondansetron 8 mg disintegrating 8 mg PO Q12H PRN NAUSEA 09/26/22 10/12/22 History tablet pantoprazole 40 mg tablet,delayed 40 mg PO QAM 09/26/22 10/12/22 History release quetiapine 300 mg tablet,extended 300 mg PO HS 09/26/22 10/12/22 History release 24 hr (Seroquel XR) sumatriptan succinate 100 mg tablet 100 mg PO UD PRN Migraine Headache 09/26/22 10/12/22 History Patient History Medical History (Updated 10/12/22 @ 15:23 by Christy Jimenez PA-C) Anxiety and depression Chronic anemia CKD (chronic kidney disease), stage III Degenerated intervertebral disc Fibromyalgia Stable currently GERD (gastroesophageal reflux disease) Well controlled and stable High cholesterol History of blood transfusion 1969's after childbirth Hx of herpes simplex infection Valtrex PRN Hypothyroidism IBS (irritable bowel syndrome) Low blood pressure No medications needed Occ dizziness - x months - intermittent Obesity Prediabetes Hgb A1C 6.1 on 09/06/22 Sciatica Surgical History (Updated 10/12/22 @ 15:23 by Christy Jimenez PA-C) Fusion of spine History of cataract surgery RT/LEFT History of esophagogastroduodenoscopy (EGD) History of tooth extraction History of total right knee replacement Hx of cholecystectomy Hx of colonoscopy Hx of shoulder surgery RIGHT AND LEFT Hx of total hysterectomy Nausea and vomiting after administration of anesthetic agent Family History Father Diabetes Abdominal aortic aneurysm Colorectal cancer Other No family history of adverse response to anesthesia Social History (Reviewed 10/12/22 @ 15:19 by ROSS Clayton Smoking Status: Former smoker Smoking End Date: 1993; Second Hand Exposure: Yes ( A CHILD); Do You Dip or Chew Tobacco: No; Hx Alcohol Use: Yes Preferred Language: Hungarian Communication Ability: Effective L[employer] Required: No Beliefs That Will Affect Care: None marital status: Current Living Situation: Spouse Feels Safe at Home: Yes Safety Concerns: Feels Safe At This Time Assistive Devices: Denture - Upper and Glasses Review of Systems Review of Systems: All systems reviewed & are unremarkable except as noted in HPI & below Physical Exam Physical Exam: General: no distress, WDWN Head: normocephalic, atraumatic Eyes: conjunctiva non-injected, anicteric ENT: normal inspection external ears, nose, mucous membranes moist Neck: supple, trachea midline Lungs: clear, no respiratory distress, no wheezing/rhonchi/rales CV: RRR, no murmur, no pretibial edema Abd: normal BS, soft, non-tender Back: dressing in place, +KANU drain in place with serosanguineous drainage Ext: no cyanosis, no calf tenderness Neuro: A&O x 3, no focal deficits noted, normal affect Skin: warm, dry Results & Data Vital Signs (Past 12 Hours) Vital Signs Temp Pulse Pulse Resp BP BP Pulse Ox 10/12/22 14:23 10/12/22 14:14 97 H 18 107/70 94 10/12/22 13:37 36.6 C 95 H 16 116/77 93 10/12/22 13:05 96 H 14 124/61 93 10/12/22 12:45 96 H 17 124/70 96 10/12/22 12:35 97 H 12 122/72 95 10/12/22 12:25 92 H 12 126/65 97 10/12/22 13:15 36.6 C 92 H 12 125/61 95 10/12/22 12:55 36.2 C L 97 H 15 109/67 94 10/12/22 12:15 93 H 14 111/71 97 10/12/22 12:05 36.9 C 93 H 14 128/87 97 10/12/22 08:34 36.9 C 92 H 20 163/91 H 95 O2 Del Method O2 Flow Rate 10/12/22 14:23 Nasal Cannula 4 10/12/22 14:14 Nasal Cannula 4 10/12/22 13:37 Nasal Cannula 3 10/12/22 13:05 Nasal Cannula 3 10/12/22 12:45 Nasal Cannula 4 10/12/22 12:35 Oxymask 4 10/12/22 12:25 Oxymask 4 10/12/22 13:15 Nasal Cannula 3 10/12/22 12:55 Nasal Cannula 3 10/12/22 12:15 Oxymask 6 10/12/22 12:05 Oxymask 6 10/12/22 08:34 Room Air
[2022-10-12] MEDS: GABAPENTIN 300 MG CAP PO SCH ×2 (15:22→21:01)
[2022-10-12] MEDS: CHECK SCOPOLAMINE PATCH PLACEMENT SCH ×2 (15:38→23:02)
[2022-10-12] MEDS: CLINDAMYCIN/D5W 600 MG/50 ML BAG IV SCH (17:26)
[2022-10-12] MEDS: ONDANSETRON INJ 2 MG/ML 2 ML VIAL IV PRN (20:59)
[2022-10-12] MEDS: DOCUSATE SODIUM/SENNA 50/8.6MG TAB PO SCH (21:01)
[2022-10-12] MEDS: COLESTIPOL HCL 1 GM TAB PO SCH (21:02)
[2022-10-12] MEDS: SIMVASTATIN 40 MG TAB PO SCH (21:02)
[2022-10-12] MEDS: QUEtiapine FUMARATE 50 MG TABCR PO SCH (21:03)
[2022-10-13] MEDS: CLINDAMYCIN/D5W 600 MG/50 ML BAG IV SCH (01:48)
[2022-10-13] MEDS: LACTATED RINGER'S 1,000 ML IV SCH (04:14)
[2022-10-13] MEDS: oxyCODONE HCL IR 5 MG TAB (IMMEDIATE RELEASE) PO PRN ×3 (05:59→20:28)
[2022-10-13] MEDS: POLYETHYLENE (MIRALAX) 17 GM PACK PO SCH ×2 (05:59→12:19)
[2022-10-13] MEDS: LEVOTHYROXINE SODIUM 88 MCG TABLET PO SCH (06:00)
[2022-10-13 06:21] LABS: Basophils # (auto) 0.01 K/uL (0-0.2); Basophils % (auto) 0.1 %; Hematocrit (blood only) 30.5 % (37.0-47.0); Hemoglobin 9.9 g/dl (12.0-16.0); Immature Granulocytes # (auto) 0.06 K/uL (0.01-0.20); Immature Granulocytes % (auto) 0.4 %; Lymphocytes # (auto) 1.63 K/uL (1.2-3.4); Lymphocytes % (auto) 11.8 %; Mean Corpuscular Hemoglobin 26.9 pg (25.0-34.0); Mean Corpuscular Hgb Conc 32.5 g/dL (32.0-36.0); Mean Corpuscular Volume 82.9 fL (80.0-100.0); Mean Platelet Volume 9.8 fL (9.4-12.4); Monocytes # (auto) 0.92 K/uL (0.11-0.59); Monocytes % (auto) 6.6 %; Neutrophils # (auto) 11.25 K/uL (1.40-6.50); Neutrophils % (auto) 81.1 %; Platelet Count 349 K/uL (130-400); RDW Coefficient of Variation 16.4 % (11.5-14.5); RDW Standard Deviation 49.8 fL (36.4-46.3); Red Blood Count 3.68 M/uL (4.20-5.40); White Blood Count 13.87 K/ul (4.8-10.8)
[2022-10-13 06:49] LABS: Calcium 9.1 mg/dl (8.6-10.3); Potassium 4.1 mmol/L (3.5-5.1)
[2022-10-13 06:55] LABS: BUN Creatinine Ratio 14.8 (10-20); Creatinine Clr Calc Pharmacy 63.3 ml/min; Est GFR (African American) 75.5 ml/min; Est GFR (Non-African American) 65.2 ml/min
[2022-10-13] MEDS: CHECK SCOPOLAMINE PATCH PLACEMENT SCH ×2 (08:27→15:40)
[2022-10-13] MEDS: GABAPENTIN 300 MG CAP PO SCH ×3 (08:29→20:30)
[2022-10-13] MEDS: MULTIVITAMIN TAB PO SCH (08:29)
[2022-10-13] MEDS: PANTOprazole 40 MG TAB PO SCH (08:29)
[2022-10-13] MEDS: MONTELUKAST SODIUM 10 MG TABLET PO SCH (08:29)
[2022-10-13] MEDS: COLESTIPOL HCL 1 GM TAB PO SCH ×2 (08:30→20:29)
[2022-10-13] MEDS: FERROUS SULFATE 325 MG TAB PO SCH (08:30)
[2022-10-13] MEDS: dexAMETHasone 6 MG in SYRINGE 0 ML IV SCH (08:30)
[2022-10-13] MEDS: CHOLECALCIFEROL 5,000 UNITS 125 MCG TAB PO SCH (08:30)
[2022-10-13] MEDS ORDERED: NON-FORMULARY MEDICATION (Biotin 1 mg Capsule) PO SCH (09:00)
--- NOTE | 2022-10-13 09:46 | Orthopedic Progress Note ---
Date of Service October 13, 2022 Assessment & Plan (1) Neurogenic claudication due to lumbar spinal stenosis: Plan: This time initiate physical therapy monitor her KANU operatively discharge home in the next few days. She is requesting home health upon discharge as she will be home alone. Admission and Anticipated Discharge Date Admission Date: October 12, 2022 Subjective Back pain controlled leg pain improved Physical Exam Physical Exam: Patient is currently in bed. She is comfortable. Is good strength testing. Results & Data Vital Signs (Past 12 Hours) Vital Signs Temp Pulse Resp BP Pulse Ox O2 Del Method 10/13/22 07:50 36.7 C 97 H 16 140/80 96 Room Air 10/13/22 03:36 36.7 C 100 H 18 136/77 94 Room Air 10/12/22 23:25 36.8 C 88 18 140/84 95 Room Air Queries Orthopedic Spine Acute Posthemorrhagic Anemia: Yes Obesity: Yes
--- NOTE | 2022-10-13 17:38 | Hospitalist Progress Note ---
Date of Service October 13, 2022 Assessment & Plan (1) Status post lumbar surgery: (2) Neurogenic claudication due to lumbar spinal stenosis: Plan: S/P removal instrumentation L3-L5, decompression and fusion L1-L3 by Dr Guzmán on 10/12 EBL#250ml -pain management per ortho -wound management per ortho -PT/OT as appropriate -DVT prophylaxis per ortho -incentive spirometry -monitor H&H for acute blood loss anemia; pre-op Hgb: 11.6 (3) CKD (chronic kidney disease), stage III: Plan: Cr: 1.3. Baseline Cr: 1.1-1.3 -Monitor renal functions, avoid nephrotoxic agents when possible (4) Prediabetes: Plan: A1c: 6.1 on 09/06/22 -Recently prescribed ozempic, however hasn't started yet -Monitor AM BSG (5) Chronic anemia: Plan: Hgb: 11.6 pre-op. At baseline -Monitor H&H -Continue iron supplement (6) Dyslipidemia: Plan: -Continue simvastatin (7) Anxiety and depression: (8) Fibromyalgia: Plan: -Continue gabapentin -Continue Seroquel, Savella (9) GERD (gastroesophageal reflux disease): Plan: -Continue PPI (10) Hypothyroidism: Plan: -Continue hypothyroidism Admission and Anticipated Discharge Date Admission Date: October 12, 2022 Subjective reports nausea no fevers no chest pain BM today Review of Systems Review of Systems: as above Physical Exam Physical Exam: appears younger than stated age, no acute distress Respiratory: breathing comfortably on room air, no wheezing/cough/rhonchi Cardiovascular: regular rate and rhythm, no murmurs/rubs Gastrointestinal (Abdomen): soft, non tender Musculoskeletal: no edema Neurologic: awake, alert, answering questions appropriately Results & Data Results & Data Vital Signs (Past 12 Hours) Vital Signs Temp Pulse Resp BP Pulse Ox O2 Del Method 10/13/22 14:36 36.9 C 82 17 129/80 94 Room Air 10/13/22 12:12 36.6 C 87 16 126/74 94 Room Air 10/13/22 07:50 36.7 C 97 H 16 140/80 96 Room Air
[2022-10-13] MEDS: LORazepam 0.5 MG TAB PO PRN (20:28)
[2022-10-13] MEDS: diphenhydrAMINE Capsule 25 MG CAP PO PRN (20:28)
[2022-10-13] MEDS: SIMVASTATIN 40 MG TAB PO SCH (20:29)
[2022-10-13] MEDS: QUEtiapine FUMARATE 50 MG TABCR PO SCH (20:29)
[2022-10-13] MEDS: DOCUSATE SODIUM/SENNA 50/8.6MG TAB PO SCH (20:30)
[2022-10-14] MEDS: CHECK SCOPOLAMINE PATCH PLACEMENT SCH ×3 (00:57→15:28)
[2022-10-14] MEDS: LEVOTHYROXINE SODIUM 88 MCG TABLET PO SCH (06:00)
--- NOTE | 2022-10-14 08:01 | Orthopedic Progress Note ---
Date of Service October 14, 2022 Assessment & Plan (1) Neurogenic claudication due to lumbar spinal stenosis: Plan: Yuly is postoperative day 2 status post hard removal L3-5, TLIF L3-4. She is doing well. We will continue with physical therapy today. Maintain KANU drain. DVT prophylaxis is in the form of teds and SCDs. Continue with pain control. Anticipate discharge home within the next day or 2. Admission and Anticipated Discharge Date Admission Date: October 12, 2022 Subjective Yuly is postoperative day 2 status post hard removal L3-5, TLIF L2-3. She is doing well. Pain is controlled.She is laying in bed alert and oriented x3 She had a bowel movement. KANU drain output last shift was 30 cc. Yesterday in physical therapy ambling roughly 200 feet. Review of Systems Review of Systems: All systems reviewed & are unremarkable except as noted in HPI & below Physical Exam Physical Exam: Alert and oriented x3 No acute distress Strength is intact bilateral lower extremities Calf soft nontender bilaterally Lumbar dressing is clean dry and intact with functioning KANU drain Results & Data Vital Signs (Past 12 Hours) Vital Signs Temp Pulse Resp BP Pulse Ox O2 Del Method 10/14/22 07:29 36.4 C L 86 14 117/71 94 Room Air 10/14/22 02:00 36.7 C 68 16 124/72 95 Room Air 10/13/22 20:56 36.7 C 72 18 135/66 95 Room Air
[2022-10-14] MEDS: FERROUS SULFATE 325 MG TAB PO SCH (08:35)
[2022-10-14] MEDS: dexAMETHasone 6 MG in SYRINGE 0 ML IV SCH (08:35)
[2022-10-14] MEDS: MULTIVITAMIN TAB PO SCH (08:36)
[2022-10-14] MEDS: GABAPENTIN 300 MG CAP PO SCH ×3 (08:36→20:28)
[2022-10-14] MEDS: COLESTIPOL HCL 1 GM TAB PO SCH ×2 (08:37→20:27)
[2022-10-14] MEDS: CHOLECALCIFEROL 5,000 UNITS 125 MCG TAB PO SCH (08:37)
[2022-10-14] MEDS: MONTELUKAST SODIUM 10 MG TABLET PO SCH (08:37)
[2022-10-14] MEDS: PANTOprazole 40 MG TAB PO SCH (08:37)
[2022-10-14] MEDS: ONDANSETRON INJ 2 MG/ML 2 ML VIAL IV PRN (08:52)
[2022-10-14] MEDS: oxyCODONE HCL IR 5 MG TAB (IMMEDIATE RELEASE) PO PRN ×2 (10:01→21:31)
[2022-10-14] MEDS: LORazepam 0.5 MG TAB PO PRN (17:14)
--- NOTE | 2022-10-14 18:10 | Hospitalist Progress Note ---
Date of Service October 14, 2022 Assessment & Plan (1) Status post lumbar surgery: (2) Neurogenic claudication due to lumbar spinal stenosis: Plan: S/P removal instrumentation L3-L5, decompression and fusion L1-L3 by Dr Guzmán on 10/12 EBL#250ml -pain management per ortho -wound management per ortho -PT/OT as appropriate -DVT prophylaxis per ortho -incentive spirometry -monitor H&H for acute blood loss anemia; pre-op Hgb: 11.6 (3) CKD (chronic kidney disease), stage III: Plan: Cr: 1.3. Baseline Cr: 1.1-1.3 -Monitor renal functions, avoid nephrotoxic agents when possible (4) Prediabetes: Plan: A1c: 6.1 on 09/06/22 -Recently prescribed ozempic, however hasn't started yet -Monitor AM BSG (5) Chronic anemia: Plan: Hgb: 11.6 pre-op. At baseline -Monitor H&H -Continue iron supplement (6) Dyslipidemia: Plan: -Continue simvastatin (7) Anxiety and depression: (8) Fibromyalgia: Plan: -Continue gabapentin -Continue Seroquel, Savella (9) GERD (gastroesophageal reflux disease): Plan: -Continue PPI (10) Hypothyroidism: Plan: -Continue hypothyroidism Plan left cheek erythema - Possibly contact dermatitis, monitor for now. Admission and Anticipated Discharge Date Admission Date: October 12, 2022 Subjective Reports redness on her left cheek since yesterday No fevers/chills No chest pain or shortness of breath Review of Systems Review of Systems: as above Physical Exam Physical Exam: appears well, no acute distress Respiratory: breathing comfortably on room air, no wheezing Cardiovascular: regular rate and rhythm, no murmurs/rubs Gastrointestinal (Abdomen): soft, non tender Musculoskeletal: no edema Skin: mild left cheek redness Neurologic: awake, alert Results & Data Results & Data Vital Signs (Past 12 Hours) Vital Signs Temp Pulse Resp BP Pulse Ox O2 Del Method O2 Flow Rate 10/14/22 14:47 36.8 C 79 16 144/80 H 96 Room Air 10/14/22 13:38 36.9 C 81 16 116/75 96 Nasal Cannula 2 10/14/22 12:29 36.6 C 87 16 125/79 91 Room Air 10/14/22 11:30 36.9 C 99 H 16 132/82 93 Room Air 10/14/22 07:29 36.4 C L 86 14 117/71 94 Room Air
[2022-10-14] MEDS: DOCUSATE SODIUM/SENNA 50/8.6MG TAB PO SCH (20:28)
[2022-10-14] MEDS: QUEtiapine FUMARATE 50 MG TABCR PO SCH (20:28)
[2022-10-14] MEDS: SIMVASTATIN 40 MG TAB PO SCH (20:28)
[2022-10-14] MEDS: diphenhydrAMINE Capsule 25 MG CAP PO PRN (21:31)
[2022-10-15] MEDS: CHECK SCOPOLAMINE PATCH PLACEMENT SCH (00:22)
[2022-10-15] MEDS: LEVOTHYROXINE SODIUM 88 MCG TABLET PO SCH (05:39)
[2022-10-15 05:55] LABS: Basophils # (auto) 0.03 K/uL (0-0.2); Basophils % (auto) 0.3 %; Eosinophils # (auto) 0.04 K/uL (0-0.50); Eosinophils % (auto) 0.4 %; Hematocrit (blood only) 29.5 % (37.0-47.0); Hemoglobin 9.7 g/dl (12.0-16.0); Immature Granulocytes # (auto) 0.06 K/uL (0.01-0.20); Immature Granulocytes % (auto) 0.6 %; Lymphocytes # (auto) 2.45 K/uL (1.2-3.4); Lymphocytes % (auto) 22.7 %; Mean Corpuscular Hemoglobin 27.5 pg (25.0-34.0); Mean Corpuscular Hgb Conc 32.9 g/dL (32.0-36.0); Mean Corpuscular Volume 83.6 fL (80.0-100.0); Mean Platelet Volume 9.9 fL (9.4-12.4); Monocytes # (auto) 1.21 K/uL (0.11-0.59); Monocytes % (auto) 11.2 %; Neutrophils # (auto) 7.02 K/uL (1.40-6.50); Neutrophils % (auto) 64.8 %; Platelet Count 310 K/uL (130-400); RDW Coefficient of Variation 16.5 % (11.5-14.5); RDW Standard Deviation 50.2 fL (36.4-46.3); Red Blood Count 3.53 M/uL (4.20-5.40); White Blood Count 10.81 K/ul (4.8-10.8)
[2022-10-15 06:18] LABS: Calcium 8.8 mg/dl (8.6-10.3); Potassium 3.8 mmol/L (3.5-5.1)
[2022-10-15 06:23] LABS: Creatinine Clr Calc Pharmacy 59.2 ml/min; Est GFR (African American) 69.8 ml/min; Est GFR (Non-African American) 60.2 ml/min
--- NOTE | 2022-10-15 08:27 | Hospitalist Progress Note ---
Date of Service October 15, 2022 Assessment & Plan (1) Status post lumbar surgery: (2) Neurogenic claudication due to lumbar spinal stenosis: Plan: S/P removal instrumentation L3-L5, decompression and fusion L1-L3 by Dr Guzmán on 10/12 -pain management per ortho -wound management per ortho -PT/OT as appropriate -DVT prophylaxis per ortho -incentive spirometry Acute blood loss anemia; post-op, also possibly dilutional pre-op Hgb: 11.6 -> 9.9 -> 9.7 - expected, no need for blood transfusion - Hgb stable from yesterday (3) CKD (chronic kidney disease), stage III: Plan: Cr: 1.3. Baseline Cr: 1.1-1.3 now Cr 1 -Monitor renal functions, avoid nephrotoxic agents when possible (4) Prediabetes: Plan: A1c: 6.1 on 09/06/22 -Recently prescribed ozempic, however hasn't started yet -Monitor AM BSG (5) Chronic anemia: Plan: Hgb: 11.6 pre-op. At baseline -Monitor H&H, also some acute component as above -Continue iron supplement (6) Dyslipidemia: Plan: -Continue simvastatin (7) Anxiety and depression: (8) Fibromyalgia: Plan: -Continue gabapentin -Continue Seroquel, Savella (9) GERD (gastroesophageal reflux disease): Plan: -Continue PPI (10) Hypothyroidism: Plan: -Continue hypothyroidism Plan left cheek erythema - Possibly contact dermatitis, monitor for now. seems resolved now Admission and Anticipated Discharge Date Admission Date: October 12, 2022 Subjective Patient seen in follow-up of med consult, status post L2-L3 surgery Pt is sitting in chair, in NAD, eating breakfast No fevers/chills No chest pain or shortness of breath, no abd. pain She ambulates and had BM Review of Systems Review of Systems: All systems reviewed & are unremarkable except as noted in Subjective Physical Exam Physical Exam: Physical Exam: appears well, no acute distress Respiratory: breathing comfort ably on room air, no wheezing Cardiovascular:G regular rate and rhythm, no murmurs /rubs Gastrointestinal ( Abdomen): soft, non tender Musculoskeletal: no edema, moves e xtremities Skin: warm, dry Neurologic: awake, alert Results & Data Results & Data Vital Signs (Past 12 Hours) Vital Signs Temp Pulse Resp BP Pulse Ox O2 Del Method 10/15/22 07:23 36.6 C 92 H 18 108/74 95 Room Air 10/15/22 00:00 36.6 C 77 18 136/70 96 Room Air Laboratory Results 10/15/22 10/15/22 Range/Units 05:35 05:35 WBC 10.81 H (4.8-10.8) K/ul RBC 3.53 L (4.20-5.40) M/uL Hgb 9.7 L (12.0-16.0) g/dl Hct 29.5 L (37.0-47.0) % MCV 83.6 (80.0-100.0) fL MCH 27.5 (25.0-34.0) pg MCHC 32.9 (32.0-36.0) g/dL RDW Std Deviation 50.2 H (36.4-46.3) fL RDW Coeff of Hi 16.5 H (11.5-14.5) % Plt Count 310 (130-400) K/uL MPV 9.9 (9.4-12.4) fL Immature Gran % (Auto) 0.6 % Neut % (Auto) 64.8 % Lymph % (Auto) 22.7 % [place] % (Auto) 11.2 % Eos % (Auto) 0.4 % Baso % (Auto) 0.3 % Neut # (Auto) 7.02 H (1.40-6.50) K/uL Lymph # (Auto) 2.45 (1.2-3.4) K/uL [place] # (Auto) 1.21 H (0.11-0.59) K/uL Eos # (Auto) 0.04 (0-0.50) K/uL Baso # (Auto) 0.03 (0-0.2) K/uL Immature Gran # (Auto) 0.06 (0.01-0.20) K/uL Sodium 138 (136-145) mmol/L Potassium 3.8 (3.5-5.1) mmol/L Chloride 106 (98-107) mmol/L Carbon Dioxide 25 (21-32) mmol/L Anion Gap 7 (3-11) BUN 16 (6-23) mg/dl Creatinine 0.94 (0.6-1.2) mg/dl Est Cr Clr Drug Dosing 59.2 ml/min Est GFR ( Amer) 69.8 ml/min Est GFR (Non-Af Amer) 60.2 ml/min BUN/Creatinine Ratio 17.0 (10-20) Glucose 130 H (70-99(Fasting)) mg/dl Calcium 8.8 (8.6-10.3) mg/dl Medications Administered Current Inpatient Medications Acetaminophen (Acetaminophen 500 Mg Tab) 1,000 mg PO Q8H PRN PRN Reason: MILD Pain Scale 1,2,3 & Pre PT Stop: 11/11/22 13:36 Al Hydrox/Mg Hydrox/Simethicone (Aluminum/Magnesium Susp 30 Ml Udc) 30 ml PO Q6H PRN PRN Reason: Dyspepsia Stop: 11/11/22 13:36 Bisacodyl (Bisacodyl 10 Mg Supp) 10 mg CO DAILY PRN PRN Reason: Constipation Stop: 11/11/22 13:36 Colestipol HCl (Colestipol Hcl 1 Gm Tab) 1 gm PO BID [facility] Stop: 11/11/22 20:59 Last Admin: 10/14/22 20:27 Dose: 1 gm Dicyclomine HCl (Dicyclomine Hcl 10 Mg Cap) 10 mg PO TID PRN PRN Reason: Abdominal Pain Stop: 11/11/22 13:36 Diphenhydramine HCl (Diphenhydramine Capsule 25 Mg Cap) 25 mg PO Q6H PRN PRN Reason: Allergic Rhinitis/Insomnia Stop: 11/11/22 13:36 Last Admin: 10/14/22 21:31 Dose: 25 mg Famotidine (Famotidine 20 Mg Tab) 20 mg PO Q12H PRN PRN Reason: Dyspepsia Stop: 11/11/22 13:36 Ferrous Sulfate (Ferrous Sulfate 325 Mg Tab) 325 mg PO DAILY [facility] Stop: 11/12/22 08:59 Last Admin: 10/14/22 08:35 Dose: 325 mg Furosemide (Furosemide 20 Mg Tab) 20 mg PO DAILY PRN PRN Reason: FLUID RESTRICTION Stop: 11/11/22 13:36 Gabapentin (Gabapentin 300 Mg Cap) 300 mg PO TID [facility] Stop: 11/11/22 13:59 Last Admin: 10/14/22 20:28 Dose: 300 mg Hydromorphone HCl (Hydromorphone Inj 0.5 Mg/0.5 Ml Syr) 0.5 mg IV Q3H PRN PRN Reason: MODERATE Pain (Scale 4,5,6) & Pre PT Stop: 10/26/22 13:36 Hydromorphone HCl (Hydromorphone Inj 1 Mg/Ml Syringe) 1 mg IV Q3H PRN PRN Reason: SEVERE Pain (Scale 7,8,9,10) Stop: 10/26/22 13:36 Last Admin: 10/12/22 17:55 Dose: 1 mg Hydroxyzine HCl (Hydroxyzine Hcl 25 Mg Tab) 25 mg PO Q8H PRN PRN Reason: Anxiety Stop: 11/11/22 13:36 Promethazine HCl 12.5 mg/ (Sodium Chloride) 50.5 mls @ 202 mls/hr IV Q6H PRN PRN Reason: Nausea &/or Vomiting Stop: 11/11/22 13:36 Last Infusion: 10/12/22 15:24 Dose: Infused Dexamethasone 6 mg/ Syringe 1.5 mls @ 1 mls/min IV DAILY [facility] Stop: 10/15/22 09:02 Last Admin: 10/14/22 08:35 Dose: 1 mls/min Influenza Virus Vaccine Quadrival (Do Not Administer Flu Vaccine) 1 each N/A PRN PRN PRN Reason: Notification Stop: 11/11/22 13:36 Levothyroxine Sodium (Levothyroxine Sodium 88 Mcg Tablet) [facility]: 11/12/22 06:29 Last Admin: 10/15/22 05:39 Dose: 88 mcg Lorazepam (Lorazepam 0.5 Mg Tab) 0.5 mg PO Q8H PRN PRN Reason: Sedation/Anxiety Stop: 11/11/22 13:36 Last Admin: 10/14/22 17:14 Dose: 0.5 mg Lorazepam (Lorazepam 2 Mg/1 Ml Vial) 0.5 mg IV Q8H PRN PRN Reason: Sedation/Anxiety Stop: 11/11/22 13:36 Magnesium Hydroxide (Magnesium Hydroxide Susp 30 Ml Udc) 30 ml PO Q24H PRN PRN Reason: Constipation Stop: 11/11/22 13:36 Metoclopramide HCl (Metoclopramide Hcl Inj 5 Mg/Ml 2 Ml Vial) 10 mg IV Q6H PRN PRN Reason: Nausea &/or Vomiting Stop: 11/11/22 13:36 Last Admin: 10/12/22 13:57 Dose: 10 mg Miscellaneous (Savella 100mg--Order Awaiting Action) 1 each N/A QS [facility] Stop: 11/11/22 15:59 Last Admin: 10/15/22 00:22 Dose: Not Given Montelukast Sodium (Montelukast Sodium 10 Mg Tablet) 10 mg PO QAM [facility] Stop: 11/12/22 08:59 Last Admin: 10/14/22 08:37 Dose: 10 mg Multivitamins (Multivitamin Tab) 1 tab PO DAILY [facility] Stop: 11/12/22 08:59 Last Admin: 10/14/22 08:36 Dose: 1 tab Naloxone HCl (Naloxone Hcl 0.4 Mg/1 Ml Vial/Carp) 0.1 mg IV Q5M PRN PRN Reason: Oversedation/Resp depression Stop: 11/11/22 13:36 Ondansetron HCl (Ondansetron Inj 2 Mg/Ml 2 Ml Vial) 4 mg IV Q6H PRN PRN Reason: Nausea &/or Vomiting Stop: 11/11/22 13:36 Last Admin: 10/14/22 08:52 Dose: 4 mg Ondansetron HCl (Ondansetron 4 Mg Od Tab) 4 mg PO Q6H PRN PRN Reason: Nausea Stop: 11/11/22 13:36 Last Admin: 10/13/22 05:58 Dose: 4 mg Oxycodone HCl (Oxycodone Hcl Ir 5 Mg Tab (Immediate Release)) 5 - 10 mg PO Q4H PRN PRN Reason: Pain & Pre PT Stop: 10/26/22 13:36 Last Admin: 10/14/22 21:31 Dose: 10 mg Pantoprazole Sodium (Pantoprazole 40 Mg Tab) 40 mg PO QAM [facility] Stop: 11/12/22 08:59 Last Admin: 10/14/22 08:37 Dose: 40 mg Pneumococcal Polyvalent Vaccine (Do Not Administer Pneumococcal Vaccine) 1 each N/A PRN PRN PRN Reason: Notification Stop: 11/11/22 13:36 Quetiapine Fumarate (Quetiapine Fumarate 50 Mg Tabcr) 300 mg PO HS [facility] Stop: 11/11/22 20:59 Last Admin: 10/14/22 20:28 Dose: 300 mg Senna/Docusate Sodium (Docusate Sodium/Senna 50/8.6mg Tab) 2 tab PO HS [facility] Stop: 11/11/22 20:59 Last Admin: 10/14/22 20:28 Dose: 2 tab Simvastatin (Simvastatin 40 Mg Tab) 40 mg PO HS [facility] Stop: 11/11/22 20:59 Last Admin: 10/14/22 20:28 Dose: 40 mg Sodium Biphosphate/Sodium Phosphate (Sod Phosphate/Sod Biphosphate Enema 132 Ml Btl) 132 ml CO ONE PRN PRN Reason: Constipation Stop: 11/11/22 13:36 Sumatriptan Succinate (Sumatriptan Succinate 100 Mg Tab) 100 mg PO Q2H PRN PRN Reason: Migraine Headache Stop: 11/11/22 13:36 Last Admin: 10/12/22 21:01 Dose: 100 mg Tramadol HCl (Tramadol Hcl 50 Mg Tablet) 50 - 100 mg PO Q4H PRN PRN Reason: Moderate-Severe pain & Pre PT Stop: 11/11/22 13:36 Last Admin: 10/12/22 21:00 Dose: 100 mg Vitamin D (Cholecalciferol 5,000 Units 125 Mcg Tab) [facility] [place] Stop: 11/12/22 08:59 Last Admin: 10/14/22 08:37 Dose: 5,000 units
[2022-10-15] MEDS: GABAPENTIN 300 MG CAP PO SCH (08:41)
[2022-10-15] MEDS: PANTOprazole 40 MG TAB PO SCH (08:41)
[2022-10-15] MEDS: FERROUS SULFATE 325 MG TAB PO SCH (08:41)
[2022-10-15] MEDS: MONTELUKAST SODIUM 10 MG TABLET PO SCH (08:41)
[2022-10-15] MEDS: dexAMETHasone 6 MG in SYRINGE 0 ML IV SCH (08:41)
[2022-10-15] MEDS: MULTIVITAMIN TAB PO SCH (08:42)
[2022-10-15] MEDS: CHOLECALCIFEROL 5,000 UNITS 125 MCG TAB PO SCH (08:42)
[2022-10-15] MEDS: COLESTIPOL HCL 1 GM TAB PO SCH (08:42)
--- NOTE | 2022-10-15 09:44 | Discharge Summary ---
Date of Service October 15, 2022 Admission HPI Per Admitting Provider This is a 72-year-old female who presents with chronic persistent back and leg pain after failing course of nonoperative care she is here for surgical intervention. Principal Diagnosis Lumbar spinal stenosis with neurogenic claudication Discharge Data Allergies Allergy/AdvReac Type Severity Reaction Status Date / Time latex Allergy Intermediate red and Verified 10/12/22 08:22 swelling face Penicillins Allergy Intermediate hives, GI Verified 10/12/22 08:22 upset Sulfa (Sulfonamide Allergy Intermediate hives Verified 10/12/22 08:22 Antibiotics) meloxicam AdvReac Mild diarrhea Verified 10/12/22 08:22 Consultations 10/12/22 13:37 Consult Hospitalist Routine Procedures Performed Operation Date: 10/12/22 09:35 Actual Procedures p L2-L3 Decompression and Fusion, Hardware Removal L3-L5, Interbody Fusion L2- L3, Spinal Cord Monitoring - Oj Guzmán DO Ordered Studies 10/12/22 09:35 FL lumbar spine 2-3V Routine Hospital Course (1) Neurogenic claudication due to lumbar spinal stenosis: Plan Patient underwent lumbar decompression fusion tolerated so was taken to orthopedic for arthropathy. Postop day 1 she was up and ambulating Jorden postop day #2 on postop day #3 pain was well controlled KANU drain decreased probably. Excellent strength testing. Subsequent discharge home. Discharge orders instructions found in chart for further review. Total Time Total Time Spent Total Time Spent (In Minutes): 20 minutes Discharge Plan Discharge Items Patient Disposition: Home - Home Health Services Reason For Visit: Lumbar Region Intervertebral Disc Disorders Discharge Diagnosis: Lumbar spinal stenosis with neurogenic claudication Activity: As commented below Non-emergency contact: Primary Care Provider Call non-emergency contact if: you have any medication questions Follow-up/Referrals: Brooklyn Carlson DO [Primary Care Provider] - Diet: Regular Addtl Attending Provider Instructions: ACTIVITY RECOMMENDATIONS: SELF CARE INSTRUCTIONS AFTER THORACIC/LUMBAR FUSIONS 1. You may walk to your tolerance. It is good exercise for your legs and back. Expect some back and intermittent leg aches and pains. 2. You may perform "counter-top" level activities (make a sandwich, nelly with a project, etc.). 3. No bending or lifting of more than 10 pounds or back twisting of any nature (roll like a log when turning in bed). 4. You may ride in a car for 20-30 minutes at a time. No driving until after your first visit with your doctor. 5. Frequent changes of position and restricting sitting to 30 minutes at a time will help limit the amount of back spasms and stiffness you may experience. 6. You may discontinue the use of ambulatory aids (cane, crutches, etc.) once your strength and confidence allow. 7. You may bricklayer paving brick the shower and let water strike your incision when you arrive home at least once daily. Do not take a tub bath, sit in a hot tub or go into a swimming pool until after your first recheck in the office. SPECIAL CARE INSTRUCTIONS: VERY IMPORTANT TO READ AND REVIEW A. Your surgical incision has been closed with a cosmetic suture under the skin that will dissolve in about 6 weeks. In 14 days, you can use a pair of clean scissors and cut the suture that is left outside of the skin at the ends of your incision. 1. The small skin tapes can be removed 7 days after surgery if they have not fallen off by that point. 2. You may keep the wound open to air as much as possible to promote healing after post-op day number 5 unless told otherwise by your doctor. 3. If you think the wound looks like it is becoming infected (redness or worsening drainage) and/or you are experiencing fever, chill or worsening back pain and muscle spasms, contact the office so that we may evaluate you as soon as possible. B. Complications are uncommon, but please contact us if you have any signs or symptoms of: 1. wound infection (fever higher than 102.5 degrees F, redness, separation of wound, drainage, or increasing pain from the incision) 2. blood clots in legs (pain, swelling, redness and warmth in legs) 3. urinary tract infection (fever higher than 102.5 degrees F, burning upon urination or increased frequency of urination) 4. nerve problems (inability to walk on your toes or heels, numbness, loss of bowel or bladder control) 5. any other symptoms that concern you C. Please call the office at if you have any concerns or questions about your operation or recovery. D. No smoking! Smoking drastically decreases the chance of a solid fusion. E. Do not take any anti-inflammatory medications (Indocin, Advil, Motrin, Aspirin, Naprosyn, etc.) as these may inhibit the chance of a solid fusion. Tylenol is okay to take for pain. MANAGING PAIN AFTER SPINAL SURGERY 1. Narcotic medication is intended for short-term use and will be provided for surgical pain. Surgical pain usually lasts for a period of 4-6 weeks. Narcotic medication includes Percocet, Vicodin, Darvocet, Tylenol #3 or Lortab. 2. Longer-term pain is more appropriately treated with non-narcotic medication such as Tylenol ES. 3. Muscle spasm is not appropriately treated with narcotics. Muscle relaxers such as Soma, Flexeril or Skelaxin can be used along with Tylenol ES. 4. Remember that we all live with some "aches and pains". This is not unusual or uncommon after an injury or as we get older. a. Back pain is expected and may include muscle spasms for 4 to 6 weeks after surgery. The pain should gradually improve. If the pain worsens for no apparent reason, please contact the office. b. Intermittent leg pain may also be experienced and should not be concerned about unless it worsens for no apparent reason. If so, please contact the office. 5. We will provide appropriate medication within the normal guidelines of their prescribed use. We will also be very cautious and aware of potential abuse and extended duration of patients' medication needs. a. Pain medications are for your comfort and to assist with sleep and rest so that the tissue can heal. They are not provided in order to return to normal activity and should not be used through the day. To do so or worsening pain at night can result from ongoing tissue damage and development of tolerance to the prescribed medicine. 6. Please allow 2-3 days to process refills. Prescriptions will not be mailed but must be picked up at the office. FOLLOW UP VISIT: Keep your scheduled follow-up appointment. Any questions, please call the office at . Pending Studies at Discharge: No Stand-Alone Forms: My [employer], Smoking Cessation Medications and DC Order Prescriptions: New tramadol 50 mg tablet 50 mg PO Q6H PRN (Reason: pain, moderate) Qty: 30 0RF oxycodone 5 mg tablet 5 mg PO Q6H PRN (Reason: pain) Qty: 30 0RF Continued simvastatin 40 mg Tablet 40 mg PO HS lorazepam 1 mg Tablet 1 mg PO TID PRN (Reason: Anxiety) multivitamin Tablet 1 tab PO DAILY cyclobenzaprine 10 mg Tablet 10 mg PO TID PRN (Reason: Pain) sumatriptan succinate 100 mg Tablet 100 mg PO UD PRN (Reason: Migraine Headache) Rx Instructions: take 1 tab at onset of headache; if no relief, may repeat 1 tab after at least 2 hrs; max = 2 tabs/24 hrs ondansetron 8 mg Tablet,Disintegrating 8 mg PO Q12H PRN (Reason: NAUSEA) pantoprazole 40 mg Tablet,Delayed Release (Dr/Ec) 40 mg PO QAM ferrous sulfate 325 mg (65 mg iron) Tablet 325 mg PO DAILY gabapentin 300 mg Capsule 300 mg PO TID montelukast 10 mg Tablet 10 mg PO QAM furosemide 20 mg Tablet 20 mg PO DAILY PRN (Reason: FLUID RESTRICTION) colestipol 1 gram Tablet 1 g PO BID dicyclomine 10 mg Capsule 10 mg PO TID PRN (Reason: Abdominal Pain) naproxen 500 mg Tablet 500 mg PO BID PRN (Reason: Pain) quetiapine [Seroquel XR] 300 mg Tablet Extended Release 24 Hr 300 mg PO HS Savella 100 mg Tablet 100 mg PO BID cholecalciferol (vitamin D3) [Vitamin D3] 125 mcg (5,000 unit) Tablet 125 mcg PO QAM Probiotic 10 billion cell Capsule 10,000 mmu cells PO DAILY biotin 1 mg Capsule 1 mg PO DAILY levothyroxine 88 mcg Tablet 88 mcg PO QAM Discharge Orders: Discharge Order (Routine); Ordered 10/15/22 Ordered By: Oj Guzmán Admission Data Admit Date/Time: 10/12/22 11:36 Attending Provider: Oj Guzmán Admit Provider: Oj Guzmán Primary Care Provider: Brooklyn Carlson Other Providers: Laureen Kevin ; [facility] ; Glen Garcia
[2022-10-15] MEDS: oxyCODONE HCL IR 5 MG TAB (IMMEDIATE RELEASE) PO PRN (10:07)
== END 2022-10-15 12:32 | disposition home health service (06) | DRG 454 ==
LOC: ASU 08:02 → 3E 11:36